=== PATIENT | male | born 1950 | race Caucasian/White ===

== ENCOUNTER 2019-04-06 09:25 | Inpatient (IN) | payer MEDICARE, OTHER, SELFPAY ==
[2019-04-06] VITALS (14 sets, daily range): BP systolic 143–171; BP diastolic 81–97; PULSE 54–80; RESP 12–20; TEMP 36.6–36.8; O2SAT 95–100; BMI 27.1
--- NOTE | 2019-04-06 09:30 | ED.GENADULT ---
HPI - General Adult General Chief complaint: Neuro Symptoms/Deficit Stated complaint: Stroke like symtoms Time Seen by Provider: 04/06/19 09:29 Source: patient and family Mode of arrival: ambulatory Limitations: no limitations History of Present Illness HPI narrative: 69-year-old male here for evaluation of slurring his words and drooping of side of his face. Patient is here with his . They stated that his symptoms started at approximately 1000 hours yesterday morning which is approximately 24 hours prior to arrival here in the emergency department. He stated that they were fairly sudden onset. His stated that she thought that 1 side of his face was drooping and then a 1 point thought that the other side of his face was drooping. She stated that he has continued to slur his words since then. Potentially some improvement however they are unsure. He denies any other symptoms. Has never had a stroke in the past. Not on anticoagulation. Related Data Home Medications Medication Instructions Recorded Confirmed No Known Home Medications 04/06/19 04/06/19 Allergies Allergy/AdvReac Type Severity Reaction Status Date / Time No Known Drug Allergies Allergy Verified 04/06/19 10:44 Review of Systems Constitutional Denies fever(s), Denies frequent falls, Denies headache(s) and Denies weakness Eyes Denies change in vision, Denies diplopia and Denies loss of vision ENT Ears, Nose, Mouth, and Throat: Denies vertigo, Denies dizziness, Denies facial pain, Denies headache(s), Denies mouth pain, Denies disequilibrium, Denies tinnitus and Denies sore throat Comments: Slurring words Cardiovascular Denies chest pain, Denies syncope, Denies edema and Denies dyspnea Respiratory Denies cough and Denies dyspnea Gastrointestinal Gastrointestinal: Denies abdominal pain, Denies nausea and Denies vomiting Genitourinary Denies dysuria and Denies flank pain Musculoskeletal Denies abnormal gait, Denies myalgias, Denies arthralgias, Denies numbness and Denies tingling Integumentary/Breasts Denies lesions and Denies rash Neurologic Denies abnormal movements, Reports abnormal speech, Denies abnormal gait, Denies behavioral changes, Denies confusion, Denies vertigo, Denies dizziness, Denies syncope, Denies frequent falls, Denies headache(s), Denies lack of coordination, Denies loss of vision, Denies memory loss, Denies numbness, Denies tingling, Denies paresthesias, Denies disequilibrium and Denies weakness Psychiatric Denies behavioral changes, Denies confusion and Denies memory loss Hematologic/Lymphatic Denies easy bleeding and Denies easy bruising Allergic/Immunologic Denies urticaria [facility] Medical History (Updated 04/06/19 @ 11:15 by Buck Campbell DO) Healthy adult (Acute) Social History marital status: lives independently: Yes Smoking Status: Never smoker Social History marital status: lives independently: Yes Smoking Status: Never smoker Exam Initial Vital Signs Initial Vital Signs: Vital Signs Pulse Rate 69 04/06/19 09:30 Respiratory Rate 14 04/06/19 09:30 Blood Pressure 171/96 H 04/06/19 09:30 Pulse Oximetry 99 04/06/19 09:30 Const General: cooperative, comfortable, well developed, well groomed and No acute distress Orientation: alert, awake and oriented x3 HENMT Head: normal to inspection and normocephalic Nose: external nose normal Face and sinus: normal facial exam Teeth and gingiva: dentition normal Eyes Pupils: PERRL EOM: EOM intact bilaterally Chest Chest: normal inspection of the chest, No crepitus and No tenderness Resp Effort & Inspection: normal respiratory effort Auscultation: clear to auscultation bilaterally Cardio Rate: regular rate Rhythm: regular rhythm Pulses: radial pulses present GI Inspection: non-distended Palpation: soft and No firm Skin Lesions: no lesions Rashes: no rashes Neuro General: alert, awake and oriented x3 Cognition: normal cognition Speech: other (Slight slurring of words) Gait: normal gait Motor: muscle tone normal throughout Sensory Exam: no sensory deficits noted Coordination: [id number] test normal Extrem General: normal to inspection and capillary refill normal Psych Appearance: grossly normal and well kempt Scores GCS Trout coma scale eye opening: Spontaneous Cuate coma scale verbal response: Orientated Cuate coma scale motor response: Obey commands Trout coma scale total score: 15 NIH Stroke Scale Level of Conciousness: Alert, keenly responsive Ask month/age: Answers both questions correctly. Open/close eyes, close hand: Performs both tasks correctly Best gaze horizontal: Normal Visual prasad: No visual loss Facial palsy: Minor paralysis, flattened nasolabial fold, asymmetry on smiling Left arm drift: No drift for full 10 sec Right arm drift: No drift for full 10 sec Left leg drift: No drift for full 10 sec Right leg drift: No drift for full 10 sec Limb ataxia: Absent Sensory on face/arms/legs: Normal, no sensory loss Best language: Mild to moderate, slurs some words Dysarthria: Normal Extinction or inattention: No abnormality Total NIH Stroke scale score: 2 Course Orders Ordered: ED Orders 04/06/19 09:30 CT head/brain wo con Stat 04/06/19 09:35 Complete Blood Count AUTO DIFF Stat Comprehensive Metabolic Panel Stat Hemoglobin A1C% w Est Avg Glu Stat Lipid Panel Routine Partial Thromboplastin Time Stat Prothrombin Time INR Stat Troponin I Stat 04/06/19 10:08 EKG-12 Lead Stat 04/06/19 10:26 CT angio head and neck Stat 04/06/19 11:36 Education, smoking cessation ONGOING 04/06/19 11:39 Consult to Discharge Planning Routine Consult to Occupational Therapy Evaluate & Treat Consult to Physical Therapy Evaluate & Treat 04/06/19 11:41 Consult to Speech Therapy Evaluate & Treat 04/06/19 11:42 EC echo doppler complete Urgent MR stroke Urgent Acetaminophen (Tylenol) 650 mg PO Q6HR PRN PRN Reason: As Needed for Fever/Mild Pain Bisacodyl (Dulcolax) 10 mg PO DAILY PRN PRN Reason: Constipation Calcium Carbonate (Tums) 1,000 mg PO Q4HR PRN PRN Reason: Dyspepsia Sodium Chloride (Normal Saline 0.9%) 1,000 mls @ 125 mls/hr IV CONT ZULMA Last Admin: 04/06/19 10:44 Dose: 125 mls/hr Sodium Chloride (Normal Saline 0.9%) 1,000 mls @ 100 mls/hr IV CONT ZULMA Ondansetron HCl (Zofran) 4 mg IV Q8HR PRN PRN Reason: Nausea And Vomiting Discontinued Medications Aspirin (Aspirin Chew) 324 mg PO NOW ONE Stop: 04/06/19 11:12 Last Admin: 04/06/19 11:19 Dose: 324 mg Vital Signs - 8 hr 04/06/19 09:30 04/06/19 09:41 04/06/19 09:45 Temperature 98.2 F Pulse Rate 69 67 63 Respiratory Rate 14 14 18 Blood Pressure 171/96 H Blood Pressure [Right Arm] 171/96 H 151/81 H Pulse Oximetry 99 99 98 04/06/19 10:00 04/06/19 10:15 04/06/19 10:30 Temperature Pulse Rate 62 62 64 Respiratory Rate 13 14 16 Blood Pressure Blood Pressure [Right Arm] 149/84 H 157/86 H 157/86 H Pulse Oximetry 99 98 98 04/06/19 11:00 04/06/19 12:02 Temperature Pulse Rate 58 L 80 Respiratory Rate 12 16 Blood Pressure Blood Pressure [Right Arm] 143/88 H 157/89 H Pulse Oximetry 98 98 Medical Decision Making Lab Data Lab results reviewed: Yes I reviewed the patient's lab results. Result diagrams: 04/06/19 09:35 04/06/19 09:35 Lab Results 04/06/19 04/06/19 04/06/19 Range/Units 09:35 09:35 09:35 WBC 6.1 (4.5-11.0) X10^3/uL RBC 4.80 (4.5-5.9) X10^6/uL Hgb 15.3 (13.5-17.5) g/dL Hct 44.8 (41-53) % MCV 93.3 (80-100) fL MCH 31.8 (26-34) PG MCHC 34.0 (30-36) % RDW 13.6 (11.6-14.8) % Plt Count 328 (150-400) X10^3/uL Neut % (Auto) 51.2 (50-75) % Lymph % (Auto) 27.5 (25-40) % Quay % (Auto) 11.8 (3-14) % Eos % (Auto) 8.1 H (2-4) % Baso % (Auto) 1.4 (0-2) % Neut # (Auto) 3100 (4053-3205) /uL Lymph # (Auto) 1700 (9614-7282) /uL Quay # (Auto) 700 (0-900) /uL Eos # (Auto) 500 H (0-450) /uL Baso # (Auto) 100 (0-100) /uL PT 11.1 (10.1-12.7) SECONDS INR 1.0 (0.9-1.3) APTT 31 (26.4-36.2) SECONDS Sodium 138 (137-145) mmol/L Potassium 4.8 (3.4-5.1) mmol/L Chloride 104 (98-107) mmol/L Carbon Dioxide 26 (22-32) mmol/L BUN 19 (9-20) mg/dL Creatinine 0.90 (0.66-1.25) mg/dL Estimated GFR > 60.0 (>60) mL/min BUN/Creatinine Ratio 21.1 (6-22) Glucose 103 (80-110) mg/dL Calcium 9.1 (8.4-10.2) mg/dL Total Bilirubin 0.8 (0.2-1.3) mg/dL AST 25 (17-59) IU/L ALT 25 (21-72) IU/L Alkaline Phosphatase 41 (38-126) U/L Troponin I < 0.012 (0.01-0.034) ng/mL Total Protein 7.1 (6.3-8.2) g/dL Albumin 4.2 (3.5-5.0) g/dL Globulin 2.9 (1.7-4.1) g/dL Albumin/Globulin Ratio 1.4 (1.0-2.8) Imaging Data CT scan - head: Radiologist's impression: [place] [address] CT Scan Report Signed Patient: Jacinda Johnston#: [id number] : 1Acct:[id number] Age/Sex: 69 / MDate of Service: 04/06/19 Loc: ED Accession Number: [id number] Procedure: CT head/brain wo con Ordering Provider: Buck Campbell D.O. PROCEDURE: CT HEAD/BRAIN WO CON INDICATIONS: confusion TECHNIQUE: Noncontrast 4.5 mm thick angled axial sections acquired from the foramen magnum to the vertex, with coronal and sagittal reformats. For radiation dose reduction, the following was used: automated exposure control, adjustment of mA and/or kV according to patient size. COMPARISON: None. FINDINGS: Image quality: Diagnostic CSF spaces: Basal cisterns are patent. No extra-axial fluid collections. Ventricles are mildly prominent. Brain: No midline shift. No intracranial masses or hemorrhage. Roger-white matter interface is normal. Moderate areas of confluent low attenuation are seen within the periventricular and deep white matter of the supratentorial brain. Skull and face: Calvarium and visualized facial bones are intact, without suspicious lesions. Sinuses: Visualized sinuses and mastoids are clear. IMPRESSION: 1. No acute intracranial hemorrhage. 2. Moderate chronic small vessel ischemic changes and mild parenchymal volume loss. Note: Findings were discussed with Dr. Campbell at 1011 hours (PST) on 04/06/19. Dictated by: Leonides Montero M.D. on 04/06/2019 at 9:09 Approved by: Leonides Montero M.D. on 04/06/2019 at 9:11 CTA: Radiologist's impression: [place] [address] CT Scan Report Signed Patient: Jacinda Johnston#: [id number] : 1950cct:[id number] Age/Sex: 69 / MDate of Service: 04/06/19 Loc: ED Accession Number: [id number] Procedure: CT angio head and neck Ordering Provider: Buck Campbell D.O. PROCEDURE: CT ANGIO HEAD AND NECK INDICATIONS: confusion TECHNIQUE: Pre-contrast 4.5 mm thick sections acquired from the foramen magnum to the vertex. After the administration of intravenous contrast, 1 mm thick sections acquired from the aortic arch through the [place]. Post-contrast 4.5 mm thick sections then re-acquired from the foramen magnum to the vertex. 3-dimensional chqwwja-sepkyhfxj-thuzarkxkj (MIP) and/or volume rendering reformats were acquired of the central intracranial vasculature and neck separately. COMPARISON: [facility], CT, CT HEAD/BRAIN WO CON, 04/06/2019, 9:41. FINDINGS: Image quality: Excellent. BRAIN: CSF spaces: Ventricles are normal in size and shape. Basal cisterns are patent. No extra-axial fluid collections. Brain: No midline shift. No intracranial bleeds or masses. Roger-white matter interface appears intact. Moderate diffuse small vessel ischemic change. No acute stroke, hemorrhage, or mass. Skull and face: Calvarium and facial bones appear intact, without suspicious lesions. Orbits appear normal. Sinuses: Sinuses and mastoids are clear. HEAD CT ANGIOGRAPHY: No stenoses, aneurysms, or occlusions. NECK CT ANGIOGRAPHY: Carotid system: The great vessels demonstrate a conventional anatomy as they arise from the aortic arch. The origins of the common carotid arteries appear patent. The common carotid arteries demonstrate normal caliber and courses. The bifurcation regions are both widely patent. There is mild plaque involving the left carotid bulb and proximal internal carotid artery without stenosis. The internal carotid arteries demonstrate normal calibers and courses. Posterior circulation: The origins of the vertebral arteries both appear widely patent. The right vertebral artery is somewhat diminutive. The left vertebral artery is dominant. The more superior extracranial portions of both vertebral arteries also demonstrate normal courses and calibers. They join to form a normal appearing basilar artery. Soft tissues: Visualized neck soft tissues demonstrate no suspicious abnormalities. Bones: No suspicious bony lesions. Visualized cervical spine appears normally aligned. IMPRESSION: 1. No evidence of acute stroke, hemorrhage, or mass. 2. Moderate small vessel ischemic change. 3. Unremarkable CTA head. No stenoses, occlusions, aneurysms, or filling defects. 4. Mild carotid atherosclerotic disease. No flow limiting stenosis. Comment: Findings were discussed with arch support technician for Dr. Campbell at the time of study dictation on 04/06/19 and 1027 hrs. Any quantitative measurements of stenosis were performed using NASCET criteria. Dictated by: Oliverio Velazquez M.D. on 04/06/2019 at 10:19 Approved by: Oliverio Velazquez M.D. on 04/06/2019 at 10:31 ECG Data Attestation: I personally reviewed and interpreted this ECG as follows: Prior ECG tracings: not available for review Interpretation: Sinus rhythm Ventricular rate is 60 Normal axis Normal QRS Normal QTC No ST T wave changes MDM Narrative Medical decision making narrative: Patient is 24 hours after the onset of his symptoms. His head CT is negative. His CTA shows no acute blockages. EKG is unremarkable. He has NIH score 2. He was given a aspirin here in the ER. Discussed the case with stroke neurologist at [facility] who stated there was no emergent interventions needed on their part. Recommended routine stroke workup. Discussed the case with hospitalist parts professional who will admit the patient for further evaluation and treatment. Discussed the admission with the patient and his who is at bedside. They both expressed understanding and agreement with plan. Discharge Plan Departure Patient Disposition: Admitted As Inpatient Clinical Impression: Cerebrovascular accident Qualifiers: CVA mechanism: unspecified Qualified Code(s): I63.9 - Cerebral infarction, unspecified Admit Date/Time: 04/06/19 11:38 Admit Provider: Sandy Bajwa
[2019-04-06 09:47] LABS: Add Manual Diff / Slide Review NO; Basophils Absolute Auto 100 /uL (0-100); Basophils Percent Auto 1.4 % (0-2); Eosinophils Absolute Auto 500 /uL (0-450); Eosinophils Percent Auto 8.1 % (2-4); Hematocrit 44.8 % (41-53); Hemoglobin 15.3 g/dL (13.5-17.5); Lymphocytes Absolute Auto 1700 /uL (1100-4500); Lymphocytes Percent Auto 27.5 % (25-40); Mean Corpuscular Hemoglobin 31.8 PG (26-34); Mean Corpuscular Volume 93.3 fL (80-100); Monocytes Absolute Auto 700 /uL (0-900); Monocytes Percent Auto 11.8 % (3-14); Neutrophils Absolute Auto 3100 /uL (1500-7000); Neutrophils Percent Auto 51.2 % (50-75); Platelet Count 328 X10^3/uL (150-400); Red Cell Distribution Width 13.6 % (11.6-14.8); White Blood Cell Count 6.1 X10^3/uL (4.5-11.0)
[2019-04-06 09:55] LABS: Prothrombin Time 11.1 SECONDS (10.1-12.7)
[2019-04-06 09:57] LABS: PTT Partial Thromboplastin Tim 31 SECONDS (26.4-36.2)
[2019-04-06 10:00] LABS: Alanine Aminotransferase 25 IU/L (21-72); Albumin 4.2 g/dL (3.5-5.0); Albumin Globulin Ratio 1.4 (1.0-2.8); Alkaline Phosphatase 41 U/L (38-126); Aspartate Aminotransferase 25 IU/L (17-59); BUN Creatinine Ratio 21.1 (6-22); Bilirubin Total 0.8 mg/dL (0.2-1.3); Blood Urea Nitrogen 19 mg/dL (9-20); Calcium 9.1 mg/dL (8.4-10.2); Carbon Dioxide 26 mmol/L (22-32); Chloride 104 mmol/L (98-107); Estimated Glomerular Filt Rate > 60.0 mL/min (>60); Globulin 2.9 g/dL (1.7-4.1); Glucose 103 mg/dL (80-110); Sodium 138 mmol/L (137-145); Total Protein 7.1 g/dL (6.3-8.2)
[2019-04-06 10:06] LABS: HEMOLYSIS 60 (0-50)
[2019-04-06 10:07] LABS: Potassium 4.8 mmol/L (3.4-5.1)
[2019-04-06 10:11] LABS: Troponin I < 0.012 ng/mL (0.01-0.034)
--- NOTE | 2019-04-06 10:26 | DI.CT.S_ITS ---
PROCEDURE: CT ANGIO HEAD AND NECK INDICATIONS: confusion TECHNIQUE: Pre-contrast 4.5 mm thick sections acquired from the foramen magnum to the vertex. After the administration of intravenous contrast, 1 mm thick sections acquired from the aortic arch through the [place]. Post-contrast 4.5 mm thick sections then re-acquired from the foramen magnum to the vertex. 3-dimensional egxmckr-tjcsobkil-iugeocmydp (MIP) and/or volume rendering reformats were acquired of the central intracranial vasculature and neck separately. COMPARISON: [facility], CT, CT HEAD/BRAIN WO CON, 04/06/2019, 9:41. FINDINGS: Image quality: Excellent. BRAIN: CSF spaces: Ventricles are normal in size and shape. Basal cisterns are patent. No extra-axial fluid collections. Brain: No midline shift. No intracranial bleeds or masses. Roger-white matter interface appears intact. Moderate diffuse small vessel ischemic change. No acute stroke, hemorrhage, or mass. Skull and face: Calvarium and facial bones appear intact, without suspicious lesions. Orbits appear normal. Sinuses: Sinuses and mastoids are clear. HEAD CT ANGIOGRAPHY: No stenoses, aneurysms, or occlusions. NECK CT ANGIOGRAPHY: Carotid system: The great vessels demonstrate a conventional anatomy as they arise from the aortic arch. The origins of the common carotid arteries appear patent. The common carotid arteries demonstrate normal caliber and courses. The bifurcation regions are both widely patent. There is mild plaque involving the left carotid bulb and proximal internal carotid artery without stenosis. The internal carotid arteries demonstrate normal calibers and courses. Posterior circulation: The origins of the vertebral arteries both appear widely patent. The right vertebral artery is somewhat diminutive. The left vertebral artery is dominant. The more superior extracranial portions of both vertebral arteries also demonstrate normal courses and calibers. They join to form a normal appearing basilar artery. Soft tissues: Visualized neck soft tissues demonstrate no suspicious abnormalities. Bones: No suspicious bony lesions. Visualized cervical spine appears normally aligned. IMPRESSION: 1. No evidence of acute stroke, hemorrhage, or mass. 2. Moderate small vessel ischemic change. 3. Unremarkable CTA head. No stenoses, occlusions, aneurysms, or filling defects. 4. Mild carotid atherosclerotic disease. No flow limiting stenosis. Comment: Findings were discussed with customer support professional for Dr. Campbell at the time of study dictation on 04/06/19 and 1027 hrs. Any quantitative measurements of stenosis were performed using NASCET criteria. Dictated by: Oliverio Velazquez M.D. on 04/06/2019 at 10:19 Approved by: Oliverio Velazquez M.D. on 04/06/2019 at 10:31
--- NOTE | 2019-04-06 10:38 | PC.NURSE ---
Strength equal in all extremities: states right arm is weak but hand grasps equal and w/o drift. c/o altered sensation in right arm but able to distinguish soft / sharp touch.
[2019-04-06] MEDS: SODIUM CHLORIDE 0.9% 1,000 ML 125 ML IV (10:44)
[2019-04-06] MEDS: ASPIRIN 81 MG TAB 324 MG PO (11:19)
--- NOTE | 2019-04-06 11:42 | DI.MRI.S_ITS ---
PROCEDURE: MR STROKE Pre- and post-contrast brain MRI, non-contrast brain MR angiogram, pre- and postcontrast neck MR angiogram INDICATIONS: right sided facial droop and slurred speech TECHNIQUE: Brain: Noncontrast axial T1 spin echo, axial T2 fast spin echo, sagittal and axial FLAIR, coronal T2 fast spin echo, axial gradient echo, axial diffusion and ADC through the brain. After the administration of contrast, axial 3D VIBE of the cranial vasculature and brain. Brain MRA: Non-contrast 3-D time of flight MR angiogram, with multiple vfrcxpd-jysnqlfvg-wkybcrmzty (MIP) reformats performed. Neck MRA: Axial and sagittal TruFISP through the neck. Coronal dynamic MR angiogram during administration of contrast in the arterial and venous phases, with 3-dimenstional lqkvgts-oywnamrsn-txltzrxtdp (MIP) reformats constructed from subtraction images. COMPARISON: [facility], CT, CT ANGIO HEAD AND NECK, 04/06/2019, 9:41. [facility], CT, CT HEAD/BRAIN WO CON, 04/06/2019, 9:41. FINDINGS: Image quality: Excellent. BRAIN: CSF spaces: Ventricles are normal in size and shape. Basal cisterns are patent. No extra-axial fluid collections. Brain: There is a focus of diffusion weighted hyperintensity seen within the deep white matter of the left frontal lobe, as on series 26 image 67. There is associated direct signal seen on the accompanying ADC map. Developing increased T2-weighted signal can be seen within this region. No intracranial bleeds or mass effects. Roger-white matter interface is normal. Scattered foci of T2 white matter hyperintensity are seen within the periventricular and deep white matter. Brain parenchymal volume loss can be seen. Brainstem appears normal. Normal intravascular flow voids are present. No abnormal intracranial enhancement. Skull and face: Calvarial marrow signal is normal. Orbits appear normal. Note is made of bilateral lens replacements. Sinuses: Mucosal thickening is seen involving the medial superior left maxillary sinus. Sinuses and mastoids are otherwise clear. BRAIN MR ANGIOGRAM: Anterior circulation: Intracranial internal carotid arteries are normal in size and enhancement. There is a diminutive right A1 segment, with a corresponding robust left A1 segment. This is considered to be a normal developmental variant of the [place], of typically no clinical consequence. The flow within the paired anterior cerebral arteries is otherwise normal and symmetric. The flow within the middle cerebral arteries is normal and symmetric. The anterior communicating artery is seen. No stenoses, occlusions, or aneurysms. Posterior circulation: The visualized portions of the vertebral arteries demonstrate normal caliber, and join to form a normal appearing basilar artery. The flow within the posterior cerebral arteries is normal and symmetric. No stenoses, occlusions, or aneurysms. NECK MR ANGIOGRAM: Carotids: Great vessels demonstrate a conventional anatomy as they arise from the aortic arch. The origins of the common carotid arteries appear patent. The calibers and courses of both common carotid arteries are normal. The bifurcation regions appear normal bilaterally. The internal carotid arteries demonstrate normal course and caliber. Posterior circulation: The origins of the vertebral arteries appear patent. More superior portions of both vertebral arteries demonstrate normal course and caliber, and join to form a normal appearing basilar artery. Miscellaneous: Subclavian arteries appear patent. Pre-contrast images through the neck show no soft tissue abnormalities. IMPRESSION: BRAIN MRI: There is a focal subacute infarction seen involving the deep white matter of the left frontal lobe. Note is made of age-appropriate brain parenchymal volume loss and chronic small vessel ischemic changes. BRAIN MR ANGIOGRAM: No significant intracranial arterial abnormality is seen. NECK MR ANGIOGRAM: Within the arteries of the neck, no hemodynamically significant stenosis can be seen. Dictated by: Jorje Irvin M.D. on 04/06/2019 at 12:54 Approved by: Jorje Irvin M.D. on 04/06/2019 at 12:59
--- NOTE | 2019-04-06 11:42 | DI.ECHO.S_ITS ---
[facility]---------+ [facility] +---------+ : : [address] : : : : [id number] : : : : Phone: [phone]+ Echocardiogram Report + + :Name: KOBE ATKINS Study Date: 04/07/2019 Height: 70 in : :[facility] Exam Location: [facility] Weight: 196 lb : : Gender: Male BSA: 2.1 m2 : :: 1950 Age: 69 yrs BP: 138/90 mmHg: :Reason For Study: CVA : : Performed By: Jimmy Baldwin : :Referring: JULIETH PARK : + + Interpretation Summary The left ventricle is normal in size, wall thickness, and systolic function without any focal wall motion abnormalities with the ejection fraction visually estimated to be 70-75%. Diastolic parameters suggest probable normal left ventricular diastolic function and normal filling pressures. The right ventricle is normal in size and function. The right ventricular systolic pressure is estimated to be at least 32 mmHg based on an estimated right atrial pressure of 3 mm Hg. The left atrium is moderately dilated and the right atrium is severely dilated. The interatrial septum is intact with no evidence for an atrial septal defect by Doppler interrogation or injection of agitated saline contrast. There is no significant valvular heart disease. The ascending aorta is at the upper limits of normal in size. Procedure: A two-dimensional transthoracic echocardiogram with color flow and Doppler was performed. The study quality was technically good. There is no prior echocardiogram noted for this patient. A saline contrast injection was performed to assess for cardiac shunting. The patient was in normal sinus rhythm during the exam. Left Ventricle: The left ventricle is normal in size, wall thickness, and systolic function without any focal wall motion abnormalities. The ejection fraction is estimated to be 70-75%. Diastolic parameters suggest probable normal left ventricular diastolic function and normal filling pressures. Right Ventricle: The right ventricle is normal in size and function. Atria: The left atrium is moderately dilated. The right atrium is severely dilated. The interatrial septum is intact with no evidence for an atrial septal defect. There is no Doppler evidence for an interatrial shunt. Injection of contrast documented no interatrial shunt. Mitral Valve: There is mild mitral annular calcification. There is trace mitral regurgitation. Aortic Valve: The aortic valve is trileaflet. The aortic valve is slightly calcified. The aortic valve opens well. No aortic regurgitation is present. Tricuspid Valve: The tricuspid valve is normal in structure and function. There is trace tricuspid regurgitation. The right ventricular systolic pressure is estimated to be at least 32 mmHg based on an estimated right atrial pressure of 3 mm Hg. Pulmonic Valve: The pulmonic valve is normal in structure and function. There is trace pulmonic regurgitation. There is no significant valvular heart disease. Great Vessels: The aortic root is normal size. The ascending aorta is at the upper limits of normal in size. The pulmonary artery is normal size. The IVC is of normal diameter and collapses greater than 50% with a sniff. This suggests a low right atrial pressure of 3 mm Hg. Pericardium/ Pleura There is no pericardial effusion. There is no pleural effusion. MMode/2D Measurements & Calculations LVIDd: 5.4 cm LVOT diam: 2.3 cm LVIDs: 2.5 cm Ao root diam: 3.4 cm FS: 53.8 % Aortic Jxn: 2.9 cm EPSS: 0.30 cm asc Aorta Diam: 3.3 cm IVSd: 0.83 cm LVPWd: 1.0 cm LV tiwari. diameter/BSA (cm/m^2): 2.6 LV sys. diameter/BSA (cm/m^2): 1.2 LA dimension: 3.9 cm RA long axis: 5.7 cm LA A2 area: 25.7 cm2 RA area: 27.2 cm2 LA A4 area: 20.6 cm2 RA vol: 111.0 ml LA length (vol): 5.2 cm RA : 53.6 ml/m2 LA vol: 85.9 ml IVC diam: 1.5 cm LA vol index: 41.5 ml/m2 RVD1 (basal): 3.5 cm RVD2 (mid): 3.3 cm Doppler Measurements & Calculations Ao V2 max: 172.3 cm/sec LVOT Max Aamir: 124.3 cm/sec Ao V2 mean: 126.4 cm/sec LV V1 max P.2 mmHg Ao max P.9 mmHg LV V1 VTI: 27.3 cm Ao mean P.9 mmHg BRUNILDA(I,D): 2.9 cm2 Ao V2 VTI: 37.9 cm BRUNILDA(V,D): 2.9 cm2 sev ratio: 0.72 BRUNILDA indexed to BSA (cm^2/m^2): 1.4 MV E max aamir: 77.2 cm/sec TR max aamir: 269.8 cm/sec MV A max aamir: 75.4 cm/sec TR max P.1 mmHg MV E/A: 1.0 PA V2 max: 141.0 cm/sec Med Peak E' Aamir: 8.3 cm/sec PA V2 mean: 103.9 cm/sec E/E' med: 9.4 PA mean P.7 mmHg Lat Peak E' Aamir: 8.9 cm/sec PA pr(Accel): 34.1 mmHg E/E' lat: 8.7 PA Accel Time: 0.10 sec E/e' average: 9.0 MV dec time: 0.21 sec SV(LVOT): 111.3 ml Reading Physician:JASSI
[2019-04-06 12:27] LABS: Cholesterol 222 mg/dL (140-199); HDL Cholesterol 55 mg/dL (40-60); LDL Cholesterol Calculated 151 mg/dL (<100); Triglycerides 81 mg/dL (35-150)
--- NOTE | 2019-04-06 13:10 | PC.ADMIT ---
Addendum entered by Joyce Valentin R.N. 04/06/19 15:01: Pt evaluated by speech therapy and cleared, eating late lunch at this time. Facial droop now appears to be left-sided. and pt report this alternating facial droop has been happening since yesterday. Original Note: [address] [place] [id number] Admission Note: Admit Patient arrived via wheelchair to room 215 at 1300. with patient. Oriented to room and to bed/tv/call light controls, instructed on fall risk level and to call for assist when needed. Denies pain. Speech mildly slurred, right facial droop noted. Taken down to MRI via wheelchair shortly after arrival to room. Declines to lock up any valuables. Call light within reach. The patient,Norberto Johnston,69 y/o, was given written information regarding hospital policies, unit procedures and contact persons. Patient's smoking status: Never smoker. Vital Signs - 8 hr 04/06/19 09:30 04/06/19 09:41 04/06/19 09:45 Temperature 98.2 F Pulse Rate 69 67 63 Respiratory Rate 14 14 18 Blood Pressure 171/96 H Blood Pressure [Right Arm] 171/96 H 151/81 H Pulse Oximetry 99 99 98 04/06/19 10:00 04/06/19 10:15 04/06/19 10:30 Temperature Pulse Rate 62 62 64 Respiratory Rate 13 14 16 Blood Pressure Blood Pressure [Right Arm] 149/84 H 157/86 H 157/86 H Pulse Oximetry 99 98 98 04/06/19 11:00 04/06/19 12:02 04/06/19 12:30 Temperature Pulse Rate 58 L 80 54 L Respiratory Rate 12 16 13 Blood Pressure Blood Pressure [Right Arm] 143/88 H 157/89 H 159/85 H Pulse Oximetry 98 98 100 04/06/19 13:00 Temperature 97.9 F Pulse Rate 61 Respiratory Rate 16 Blood Pressure 170/97 H Blood Pressure [Right Arm] Pulse Oximetry 100
[2019-04-06] MEDS: SODIUM CHLORIDE 0.9% 1,000 ML 100 ML IV (13:56)
--- NOTE | 2019-04-06 14:20 | ST.IPCSEOM ---
Care Team Visit Care Team Role Provider Type Buck Campbell DO Emergency Provider Physician Specialty: Emergency Medicine Address: [address] [place] [address], [id number] Email: Sandy Bajwa DO Admit Provider Physician Attending Provider Specialty: Internal Medicine Address: [address] [place] [address], [address] Email: Past Medical History (Last Updated 04/06/19 @ 09:39 by Buck Campbell DO) Healthy adult (Acute Medical) Speech-Language Pathology Swallow Evaluation PECAN PICKER Clinical Swallow Evaluation Start: 04/06/19 15:58 Freq: Status: Active Protocol: Document 04/06/19 15:58 TLC (Rec: 04/06/19 16:11 TLC [id number]) Clinical Swallow Evaluation Session Time Visit Start Time 13:50 Visit Stop Time 14:20 Total Visit Minutes [address] Bajwa Reason for Referral Stroke Protocol Setting Assessment Location Acute Care Visit Type Note Type Initial Evaluation Patient Information History Patient came in this morning with stroke like symptoms. MRI showed a focal subacute infarction seen involving the deep white matter of the left frontal lobe. Subjective Observations Patient sitting in bed with present in room. Evaluation Liquids Trialed Ice Chips Thin Solids Trialed Puree Mechanical Soft Regular Administration Type Self-Feeding Oral Impairment WFL Oral Phase Comments Oral Mech: mild right facial droop and mild impairments in labial strength,range of motion and coordination, lingual strength range of motion and coordination WFL. Mild anterior spillage of juice from right corner of mouth when eating mixed fruit. No other oral phase impairments observed. Pharyngeal Impairment WFL Pharyngeal Phase Comments No signs of aspiration observed during any trials including 3 oz water swallow protocol. Volitional throat clear and cough strong and production. Soft palate elevates on phonation. Findings Impressions Mild oral phase dysphagia due to decreased labial strength, coordination and range of motion which also result in mild dysarthria, though speech is 100% intelligible. No signs of pharyngeal dysphagia. Patient scored 25/30 on MoCA missing 2 points for short term recall of words, 1 for serial subtraction, 1 for divergent naming and 1 for date (off by 1). His reports patient is at baseline level cognitively. Diet Recommendations Liquids Order Thin Diet Order Regular Medication Recommendations As Tolerated Treatment Plan Placement Recommendations after Home Discharge Appropriate for Therapy No Therapy Recommendations Provided patient with verbal and written education on dysarthria speaking strategies as well as oral motor exercises for labial strength and coordination. inquired about need for speech therapy following discharge. Patient will not likely need services as impairments are very mild in severity; however , if these persist and do not recover spontaneously, he may benefit from a few outpatient ST session.
--- NOTE | 2019-04-06 17:52 | P.HP_ITS ---
History of Present Illness Date Patient Seen: 04/06/19 Chief complaint: Stoke like symtoms Narrative: Norberto Johnston is a 69-year-old male with a past medical history significant for tobacco dependence, alcohol dependence untreated hypertension and hyperlipidemia (previous statin intolerance) who presented for right-sided facial droop and slurred speech. The patient reports that yesterday morning around 10:00 a.m. his noticed right-sided facial droop and slurred speech which continued to persist throughout the afternoon and evening. This morning he noticed right-sided upper extremity weakness while brushing his hair. He has never had this before. He has no other symptoms and denies lightheadedness or dizziness, visual changes including blurry or double vision, shortness of breath, chest pain, palpitations, abdominal pain, nausea, vomiting, fever, chills, dysuria, diarrhea or constipation. His urged him to go to the ED due to persistence of symptoms. In the ED, CT and CTA brain did not demonstrate any acute intracranial process with moderate chronic small vessel ischemic changes and mild parenchymal volume loss. NIH score was a 2 for right-sided facial droop and slurred speech. He is being admitted for further evaluation and management. Patient History Medical History (Updated 04/06/19 @ 17:57 by Sandy Bajwa DO) Alcohol dependence (Acute) Hyperlipidemia (Acute) Hypertension (Acute) Inguinal hernia (Acute) Tobacco abuse disorder (Acute) Healthy adult (Acute) Surgical History (Updated 04/06/19 @ 17:57 by Sandy Bajwa DO) H/O cataract removal with insertion of prosthetic lens (Acute) Family History (Updated 04/06/19 @ 17:59 by Sandy Bajwa DO) Father Heart attack Mother Dementia Brother Healthy adult Sister Healthy adult Brother Healthy adult Brother Healthy adult Social History marital status: household members: spouse lives independently: Yes Smoking Status: Current every day smoker alcohol intake: current Family & Social History Family History (Updated 04/06/19 @ 17:59 by Sandy Bajwa DO) Father Heart attack Mother Dementia Brother Healthy adult Sister Healthy adult Brother Healthy adult Brother Healthy adult Social History: household members spouse Prior Living Arrangements House lives independently Yes Safety & Behavioral: Feels Safe in Current Yes Environment Been Physically Hurt or No Threatened By a Person Suicidal Ideation Description None Suicide Plan Description No Plan Tobacco & Substance use: Tobacco type cigarettes Smoking Status Current every day smoker Smoking packs per day 0.5 alcohol intake current alcohol intake frequency 4-6 beers a day Substance Use Type does not use The patient is x 49 years. He has 2 daughters who are healthy. 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 Meds Home Medications Medication Instructions Recorded Confirmed Type No Known Home Medications 04/06/19 04/06/19 History Allergies Allergy/AdvReac Type Severity Reaction Status Date / Time No Known Drug Allergies Allergy Verified 04/06/19 10:44 Review of Systems Review of Systems A 10 system comprehensive review of systems was conducted with the patient and found to be negative except as above in the History of Present Illness. Exam Vital Signs (past 8 hours): - 04/06/19 10:00 04/06/19 10:15 04/06/19 10:30 Temperature Pulse Rate 62 62 64 Respiratory Rate 13 14 16 Blood Pressure Blood Pressure [Right Arm] 149/84 H 157/86 H 157/86 H Pulse Oximetry 99 98 98 04/06/19 11:00 04/06/19 12:02 04/06/19 12:30 Temperature Pulse Rate 58 L 80 54 L Respiratory Rate 12 16 13 Blood Pressure Blood Pressure [Right Arm] 143/88 H 157/89 H 159/85 H Pulse Oximetry 98 98 100 04/06/19 13:00 04/06/19 16:05 Temperature 97.9 F 98.0 F Pulse Rate 61 62 Respiratory Rate 16 18 Blood Pressure 170/97 H 148/81 H Blood Pressure [Right Arm] Pulse Oximetry 100 98 Oxygen Delivery Method Room Air Oxygen Flow Rate 0 Narrative Exam Narrative: General: Older gentleman sitting in bed and in no acute distress, well- developed, well-nourished, appropriately interactive. HEENT: Normocephalic, atraumatic. External ears without defect. Pupils equal, round, and reactive to light. Anicteric sclerae, moist conjunctivae, and right- sided lid lag and facial droop. Oropharynx free of erythema and cobble stoning with moist mucosa. Neck: Supple with full range of motion. No jugular venous distension. No bruits. No lymphadenopathy or thyromegaly. Cardiovascular: Regular rate and rhythm without murmurs, rubs, or gallops appreciated. Pulmonary: Clear to auscultation bilaterally without crackles, wheezes, or rhonchi. Normal respiratory effort with no use of accessory muscles. Abdomen: Soft, bowel sounds present, nontender, nondistended. No hepatosplenomegaly or masses appreciated. Extremities: No clubbing, cyanosis, or edema. Skin: Normal temperature, turgor, and texture; no rash, ulcers, or subcutaneous nodules appreciated. Neurological: Cranial nerves grossly intact. Right-sided facial droop. Slurred speech. Normal muscle strength, tone, and bulk. Reflexes, coordination, and sensory function within normal limits. No known gait impairment. Psychiatric: Normal mood and affect. Alert and oriented to person, place, and time. Objective Labs Result Diagrams: 04/06/19 09:35 04/06/19 09:35 Labs: Laboratory Results - last 24 hr 04/06/19 04/06/19 04/06/19 09:35 09:35 09:35 WBC 6.1 RBC 4.80 Hgb 15.3 Hct 44.8 MCV 93.3 MCH 31.8 MCHC 34.0 RDW 13.6 Plt Count 328 Neut % (Auto) 51.2 Lymph % (Auto) 27.5 [place] % (Auto) 11.8 Eos % (Auto) 8.1 H Baso % (Auto) 1.4 Neut # (Auto) 3100 Lymph # (Auto) 1700 [place] # (Auto) 700 Eos # (Auto) 500 H Baso # (Auto) 100 PT 11.1 INR 1.0 APTT 31 Sodium 138 Potassium 4.8 Chloride 104 Carbon Dioxide 26 BUN 19 Creatinine 0.90 Estimated GFR > 60.0 BUN/Creatinine Ratio 21.1 Glucose 103 Hemoglobin A1c Calcium 9.1 Total Bilirubin 0.8 AST 25 ALT 25 Alkaline Phosphatase 41 Troponin I < 0.012 Total Protein 7.1 Albumin 4.2 Globulin 2.9 Albumin/Globulin Ratio 1.4 Triglycerides Cholesterol LDL Cholesterol, Calc HDL Cholesterol 04/06/19 04/06/19 09:35 09:35 WBC RBC Hgb Hct MCV MCH MCHC RDW Plt Count Neut % (Auto) Lymph % (Auto) [place] % (Auto) Eos % (Auto) Baso % (Auto) Neut # (Auto) Lymph # (Auto) [place] # (Auto) Eos # (Auto) Baso # (Auto) PT INR APTT Sodium Potassium Chloride Carbon Dioxide BUN Creatinine Estimated GFR BUN/Creatinine Ratio Glucose Hemoglobin A1c 5.0 Calcium Total Bilirubin AST ALT Alkaline Phosphatase Troponin I Total Protein Albumin Globulin Albumin/Globulin Ratio Triglycerides 81 Cholesterol 222 H LDL Cholesterol, Calc 151 H HDL Cholesterol 55 Assessment & Plan Assessment & Plan narrative: Norberto Johnston is a 69-year-old male with a past medical history significant for tobacco dependence, alcohol dependence untreated hypertension and hyperlipidemia (previous statin intolerance) who presented for right-sided facial droop and slurred speech. 1. Acute left frontal lobe CVA, present on admission. Active. -Patient presented with right-sided facial droop and slurred speech since 10:00 on 04/05/2019. -Initial NIH score 2. Continue to monitor NIH and neurological status frequently. -CT brain without contrast and CTA head and neck did not demonstrate any significant intracranial or neck abnormality including CVA, stenosis, or aneurysms. -MR stroke demonstrated a focal subacute infarction seen involving the deep white matter of the left frontal lobe. -Received aspirin 324 mg x1 in ED. Continue aspirin 81 mg daily. -Risk stratify with hemoglobin A1c and fasting lipid panel, pending. Patient has previous statin intolerance and would recommend reconsidering low-dose trial. -Allow for permissive hypertension for 24-48 hours. Ordered labetalol for SBP > 220 mmHg or DBP > 110 mmHg. -Ordered PT/OT/ST, pending. 2. Hypertension, chronic, present on admission. Stable. -Will allow for permissive hypertension for 24-48 hours. If blood pressure continues to be elevated tomorrow will implement antihypertensive regimen. 3. Hyperlipidemia, chronic, present on admission. Stable. -Ordered fasting lipid panel, pending. -Previous history of statin intolerance. May want to consider low dose statin trial. 4. Tobacco dependence, chronic, present on admission. Stable. -Patient current smoker 0.75 packs per day. -Educated patient on smoking cessation and recommended indefinite abstinence. -Ordered nicotine patch 21 mg daily as needed for nicotine withdrawal. 5. Alcohol dependence, chronic, present on admission. Stable. -Patient currently drinks 4-6 beers every night. -Educated patient on alcohol use and recommended cut back or abstain indefinitely. Patient is admitted under inpatient status with expected length of stay greater than 2 midnights due to severity of presenting symptoms, risk of adverse event, and complexity of treatment plan. Quality VTE Deep Vein Thrombosis/Pulmonary Embolism Present on Admission: No
[2019-04-07] MEDS: SODIUM CHLORIDE 0.9% 1,000 ML 100 ML IV (00:16)
--- NOTE | 2019-04-07 00:36 | PC.NURSE ---
Addendum entered by Sienna Uribe R.N. 04/07/19 06:00: 0430 NIH remains 1 with facial droop, but now appears to be present on left side of face. Denies pain. Addendum entered by Sienna Uribe R.N. 04/07/19 01:33: Correction to earlier charting: facial droop is on right. Addendum entered by Sienna Uribe R.N. 04/07/19 01:14: Telemetry reading just recorded by GAS CUTTER as SB with rate of 58. Original Note: Patient is alert and oriented with NIH of 1 due to slight left facial droop. Breath sounds CTA with RA sat of 95%. HRR and is on telemetry with last reported telemetry reading on evening shift being SR. Denies nausea. BT present and abdomen is soft. Denies dysuria, frequency or urgency and is continent of urine. Able to turn self in bed. Is steady on feet but for safety receives SBA when up to bathroom; steady on feet. Had SCD's on at shift change but after being up to bathroom at 2331 requested they be removed and now declines to have them back on despite information provided re: DVT prevention; reminded to ankle wave when awake and patient verbalizes understanding. Denies pain. CIWA score is 0. Fall risk score is moderate and bed alarm is activated.
[2019-04-07 03:30] VITALS: BP 140/82; PULSE 58; RESP 12; TEMP 36.3; O2SAT 98
[2019-04-07 07:30] VITALS: BP 138/90; PULSE 66; RESP 18; TEMP 36.4; O2SAT 99
[2019-04-07] MEDS: ASPIRIN EC 81 MG TABLET PO (08:38)
[2019-04-07 08:40] VITALS: O2SAT 98
--- NOTE | 2019-04-07 08:59 | P.DS_ITS ---
History of Present Illness Chief complaint: Stoke like symtoms Narrative: Written by myself Dr. Bajwa: Norberto Johnston is a 69-year-old male with a past medical history significant for tobacco dependence, alcohol dependence untreated hypertension and hyperlipidemia (previous statin intolerance) who presented for right-sided facial droop and slurred speech. The patient reports that yesterday morning around 10:00 a.m. his noticed right-sided facial droop and slurred speech which continued to persist throughout the afternoon and evening. This morning he noticed right-sided upper extremity weakness while brushing his hair. He has never had this before. He has no other symptoms and denies lightheadedness or dizziness, visual changes including blurry or double vision, shortness of breath, chest pain, palpitations, abdominal pain, nausea, vomiting, fever, chills, dysuria, diarrhea or constipation. His urged him to go to the ED due to persistence of symptoms. In the ED, CT and CTA brain did not demonstrate any acute intracranial process with moderate chronic small vessel ischemic changes and mild parenchymal volume loss. NIH score was a 2 for right-sided facial droop and slurred speech. He is being admitted for further evaluation and management. Discharge Providers Date of admission: 04/06/19 11:38 Discharge Date: 04/07/19 Consults: 04/06/19 11:39 Consult to Discharge Planning Routine Comment: Consult to Occupational Therapy Evaluate & Treat Comment: Physician Instructions: Evaluate and treat Consult to Physical Therapy Evaluate & Treat Comment: Physician Instructions: Evaluate and Treat 04/06/19 11:41 Consult to Speech Therapy Evaluate & Treat Comment: right facial droop and slurred speech Physician Instructions: Evaluate and treat 04/06/19 14:37 Consult to Tonnage Compilation Clerk Routine Comment: Discharge provider: Sandy Bajwa DO Summary Discharge Diagnosis: 1. Acute left frontal lobe CVA, present on admission. Active. 2. Hypertension, chronic, present on admission. Stable. 3. Hyperlipidemia, chronic, present on admission. Stable. 4. Tobacco dependence, chronic, present on admission. Stable. 5. Alcohol dependence, chronic, present on admission. Stable. Hospital Course: Norberto Johnston is a 69-year-old male with a past medical history significant for tobacco dependence, alcohol dependence untreated hypertension and hyperlipidemia (previous statin intolerance) who presented for right-sided facial droop and slurred speech. 1. Acute left frontal lobe CVA, present on admission. Active. -Patient presented with right-sided facial droop and slurred speech since 10:00 on 04/05/2019. -Initial NIH score 2. Continue to monitor NIH and neurological status frequently. -CT brain without contrast and CTA head and neck did not demonstrate any significant intracranial or neck abnormality including CVA, stenosis, or aneurysms. -MR stroke demonstrated a focal subacute infarction seen involving the deep white matter of the left frontal lobe. -Received aspirin 324 mg x1 in ED. Continued aspirin 81 mg daily. -Risk stratified: Hemoglobin A1c normal at 5.0% and fasting lipid panel which wa s uncontrolled and demonstrated: Total cholesterol 222, triglycerides 81, LDL 151 (goal l< 70), HDL 55. Patient has history of previous statin intolerance and would recommend reconsidering low-dose trial of rosuvastatin with close outpatient monitoring. -Allowed for permissive hypertension for 24-48 hours. Ordered labetalol for SBP > 220 mmHg or DBP > 110 mmHg. Started low dose losartan for hypertension after permissive hypertension period. Recommended monitoring blood pressure closely as an outpatient, titrating losartan as needed and checking renal function and 2-4 weeks. -Consulted PT/OT/ST for evaluation and treatment. Recommended outpatient speech therapy only. Occupational therapy noted delayed cognitive function and recommended against driving. 2. Hypertension, chronic, present on admission. Stable. -Allowed for permissive hypertension for 24-48 hours. -Started low dose losartan 25 mg daily and will need to be monitored including renal function in 2-4 weeks and titrated as needed outpatient by PCP. 3. Hyperlipidemia, chronic, present on admission. Stable. -Fasting lipid panel uncontrolled and demonstrated: Total cholesterol 222, triglycerides 81, LDL 151 (goal l< 70), HDL 55. -Patient has history of previous statin intolerance and would recommend reconsidering low-dose trial of rosuvastatin with close outpatient monitoring. 4. Tobacco dependence, chronic, present on admission. Stable. -Patient current smoker 0.75 packs per day. -Educated patient on smoking cessation and recommended indefinite abstinence. -Ordered nicotine patch 21 mg daily and provided outpatient prescription as needed for nicotine withdrawal. 5. Alcohol dependence, chronic, present on admission. Stable. -Patient currently drinks 4-6 beers every night. -Educated patient on alcohol use and recommended cut back or abstain indefinitely. -Monitored closely for signs of alcohol withdrawal of which the patient did not exhibit any. Status at Discharge Functional status at discharge: independent ambulation Overall status at discharge: patient is not back to baseline Exam Vital Signs (past 8 hours): - 04/07/19 03:30 04/07/19 07:30 Temperature 97.4 F L 97.6 F Pulse Rate 58 L 66 Respiratory Rate 12 18 Blood Pressure 140/82 138/90 Pulse Oximetry 98 99 Oxygen Delivery Method Room Air Oxygen Flow Rate 0 Narrative Exam Narrative: General: Older gentleman sitting in bed and in no acute distress, well-developed, well-nourished, appropriately interactive. HEENT: Normocephalic, atraumatic. External ears without defect. Pupils equal, round, and reactive to light. Anicteric sclerae, moist conjunctivae, and right- sided lid lag and facial droop. Oropharynx free of erythema and cobble stoning with moist mucosa. Neck: Supple with full range of motion. No jugular venous distension. No bruits. No lymphadenopathy or thyromegaly. Cardiovascular: Regular rate and rhythm without murmurs, rubs, or gallops appr eciated. Pulmonary: Clear to auscultation bilaterally without crackles, wheezes, or rhonchi. Normal respiratory effort with no use of accessory muscles. Abdomen: Soft, bowel sounds present, nontender, nondistended. No hepatosplenomegaly or masses appreciated. Extremities: No clubbing, cyanosis, or edema. Skin: Normal temperature, turgor, and texture; no rash, ulcers, or subcutaneous nodules appreciated. Neurological: Cranial nerves grossly intact. Persistent subtle right-sided facial droop and slurred speech. Normal muscle strength, tone, and bulk. Reflexes, coordination, and sensory function within normal limits. No known gait impairment. Cerebellar function intact with [id number] and [id number]. Psychiatric: Normal mood and affect. Alert and oriented to person, place, and time. Objective Labs Result Diagrams: 04/06/19 09:35 04/06/19 09:35 Labs: Laboratory Results - last 24 hr 04/06/19 04/06/19 04/06/19 09:35 09:35 09:35 WBC 6.1 RBC 4.80 Hgb 15.3 Hct 44.8 MCV 93.3 MCH 31.8 MCHC 34.0 RDW 13.6 Plt Count 328 Neut % (Auto) 51.2 Lymph % (Auto) 27.5 Hubbard % (Auto) 11.8 Eos % (Auto) 8.1 H Baso % (Auto) 1.4 Neut # (Auto) 3100 Lymph # (Auto) 1700 Hubbard # (Auto) 700 Eos # (Auto) 500 H Baso # (Auto) 100 PT 11.1 INR 1.0 APTT 31 Sodium 138 Potassium 4.8 Chloride 104 Carbon Dioxide 26 BUN 19 Creatinine 0.90 Estimated GFR > 60.0 BUN/Creatinine Ratio 21.1 Glucose 103 Hemoglobin A1c Calcium 9.1 Total Bilirubin 0.8 AST 25 ALT 25 Alkaline Phosphatase 41 Troponin I < 0.012 Total Protein 7.1 Albumin 4.2 Globulin 2.9 Albumin/Globulin Ratio 1.4 Triglycerides Cholesterol LDL Cholesterol, Calc HDL Cholesterol 04/06/19 04/06/19 09:35 09:35 WBC RBC Hgb Hct MCV MCH MCHC RDW Plt Count Neut % (Auto) Lymph % (Auto) Hubbard % (Auto) Eos % (Auto) Baso % (Auto) Neut # (Auto) Lymph # (Auto) Hubbard # (Auto) Eos # (Auto) Baso # (Auto) PT INR APTT Sodium Potassium Chloride Carbon Dioxide BUN Creatinine Estimated GFR BUN/Creatinine Ratio Glucose Hemoglobin A1c 5.0 Calcium Total Bilirubin AST ALT Alkaline Phosphatase Troponin I Total Protein Albumin Globulin Albumin/Globulin Ratio Triglycerides 81 Cholesterol 222 H LDL Cholesterol, Calc 151 H HDL Cholesterol 55 Discharge Plan Discharge Plan Patient Disposition: Home Discharge comment: You are being discharged home. You have had a left frontal lobe stroke. You have been prescribed aspirin 81 mg daily for stroke prevention. You may want to consider restarting a low dose of Crestor with close outpatient monitoring for further stroke prevention. Your echocardiogram was within normal limits and did not demonstrate any signs of previous heart attack, valve disease, or septal defect. You do have dilated bilateral atria likely due to uncontrolled high blood pressure, smoking and/or obstructive sleep apnea which can put you at risk of arrhythmias such as atrial fibrillation and blood clots. Recommend outpatient speech therapy for which you were provided a prescription but may need a referral from your PCP. Please follow up at your scheduled appointment with Dr. Portillo on 04/16/2019 at 1:45 p.m. to discuss your hospitalization and to establish care. Please monitor your blood pressure closely at home and at the doctor's office. You have been prescribed Losartan 25 mg daily which may need to be titrated up and your kidney function checked in the next several weeks. Your also prescribed nicotine patch daily to help with nicotine withdrawal and smoking cessation. Please do not drive for at least 6 months and recommend repeat cognitive evaluation before doing so. Discharge Med Rec/Prescriptions Prescriptions: New aspirin 81 mg Tablet,Delayed Release (Dr/Ec) 81 mg PO DAILY Qty: 30 RF: 0 losartan 25 mg Tablet 25 mg PO DAILY Qty: 30 RF: 0 nicotine 21 mg/24 hr Patch 24 Hour 21 mg topical DAILY Qty: 21 RF: 0 Follow up/Referrals: Nancy Portillo MD [Physician] - 04/16/19 1:45 pm (Follow up with Dr. Portillo @ [facility] April 16 @ 1:45 p.m. please complete and turn in new patient paperwork prior to appt. If you do not turn in paperwork prior to appt please show up to appt early @ 1:30 p.m. ) Provider Discharge Instructions Diet: Diet as Tolerated, Low-fat, Low-sodium and Low-cholesterol Activity: Activity as tolerated Visit Report/Discharge Packet Instructions: The Mediterranean Diet and Good Health, The DASH Diet, Alcohol Use Disorder, DI for Stroke-Ischemic, How to Quit Smoking, Losartan, Mediterranean Diet May Reduce the Risk of Stroke in People with High Risk o Discharge Data Attending Provider: Sandy Bajwa Admit Date/Time: 04/06/19 11:38 Quality VTE Deep Vein Thrombosis/Pulmonary Embolism Present on Admission: No
--- NOTE | 2019-04-07 10:42 | PT.IIE ---
Current Diagnoses Cerebral infarction, unspecified (04/06/19) Surgical History (Last Updated 04/06/19 @ 17:57 by Sandy Bajwa DO) H/O cataract removal with insertion of prosthetic lens (Acute) Medical History (Last Updated 04/06/19 @ 17:57 by Sandy Bajwa DO) Alcohol dependence (Acute) Hyperlipidemia (Acute) Hypertension (Acute) Inguinal hernia (Acute) Tobacco abuse disorder (Acute) Healthy adult (Acute) Physical Therapy Inpatient Evaluation/Re-Eval M1 PT/OT-IP Prior Functional Status Start: 04/07/19 12:26 Freq: NEEDED Status: Active Protocol: Document 04/07/19 10:42 AB (Rec: 04/07/19 12:42 AB [id number]) Medical Review Prior Functional Status Medical History Reviewed Yes Communication able to make needs known Mobility and Gait pt stated that he is independent with all mobilities and ambulation without AD Social History Household Members spouse Living Arrangements House Number of Floors (Floors) Two Floors Number of Stairs To Enter/Railing? pt has a daylight basement: has 1 step to enter from the front has 17 steps to enter from the garage with L rail ascending Home Environment High Toilet Walk in Shower Built-In Shower Seat Home Equipment Hand Held Shower Employment Status Retired M1 PT/OT-IP Prior Functional Status Start: 04/07/19 12:27 Freq: NEEDED Status: Active Protocol: Document 04/07/19 10:42 AB (Rec: 04/07/19 12:42 AB [id number]) M2 PT-IP Current Condition Start: 04/07/19 12:27 Freq: NEEDED Status: Active Protocol: Document 04/07/19 10:42 AB (Rec: 04/07/19 12:42 AB [id number]) Physical Therapy Current Condition Current Condition Evaluation Date 04/07/19 Treatment Diagnosis L frontal lobe CVA; difficuly in walking Onset Date 04/06/19 M3 PT-IP Subjective Start: 04/07/19 12:27 Freq: NEEDED Status: Active Protocol: Document 04/07/19 10:42 AB (Rec: 04/07/19 12:42 AB [id number]) Subjective Physical Therapy Visit Type Type Initial Evaluation Visit Start Time 10:42 Visit Stop Time 11:04 Total Visit Minutes 22 Number of DIE HARDENER Visits 0 Physical Therapy Visit Comments Patient Comments pt agreeable to do PT Therapy Pain Assessment Pain Present Pain Present Denied Pain M4 PT-IP Mobility and Gait Start: 04/07/19 12:27 Freq: NEEDED Status: Active Protocol: Document 04/07/19 10:42 AB (Rec: 04/07/19 12:42 AB [id number]) PT-Bed Mobility Assessment Supine to Sit Supine to Sit Independent Sit to Supine Sit to Supine Independent PT-Transfer Assessment Sit to and From Stand Sit to and from Stand Standby Assistance Equipment Transfer Assistive Device Gait Belt Orthotic/Prosthetic Devices or Brace: No Transfers Transfer Destination Bed Chair Transfer Technique Stand Step Pivot Transfer Ability Level of Assist Standby Assistance Gait Assessment Gait Gait Assistance Required: Standby Assistance Distance (Feet) 250 Assistive Devices Assistive Device None Gait Belt Orthotic/Prosthetic Devices or Brace: No Gait Deviations General Gait Pattern Antalgic Factors Limiting Gait Function Factors Limiting Gait Function Poor Balance Stair Climbing Assessment Evaluation Level of Assist On Stairs Standby Assistance 1 Person Assistance Devices Stair Climbing Assistive Devices None Left Railing Technique/Endurance Stair Climbing Direction Ascend and Descend Stair Climbing Technique Step Over Step Number of Steps Climbed 3 Query Text: Stair Climbing Set # Repetitions (reps) 6 Comments Stair Climbing Comments completed up/down steps using L rail ascending SBA; also completed up/down 1 step without rails SBA PT-Balance Assessment Sitting Balance and Reactions Static Sitting Balance Ability Normal Dynamic Sitting Balance Ability Normal Standing Balance and Reactions Static Standing Balance Ability Normal Dynamic Standing Balance Ability Good Device Used without AD Balance Tests Single Limb Standing F- Functional Assessments Functional Tests Tinetti Balance and Gait Assessment bal score: 15/16 gait score 9/ 12 total score 24/28 Other Functional Tests Performed Tinetti total score: 24/28: low fall risk M5 PT-IP Objective Assessments Start: 04/07/19 12:27 Freq: NEEDED Status: Active Protocol: Document 04/07/19 10:42 AB (Rec: 04/07/19 12:42 AB [id number]) Orientation Orientation/Cognition Level of Alertness Alert Orientation Name Language Function Ability No Deficits Noted Safety Awareness Understands Safety Issues Gross Range of Motion Lower Extremity ROM Assessment Within Functional Limits Strength Lower Extremity Strength Assessment Within Functional Limits Coordination Assessment Gross Coordination Gross Coordination WNL Sensation Assessment Sensation Gross Sensation WNL Muscle Tone Muscle Tone WNL Yes M6 PT-IP Treatment Start: 04/07/19 12:27 Freq: NEEDED Status: Active Protocol: Document 04/07/19 10:42 AB (Rec: 04/07/19 12:42 AB [id number]) Physical Therapy Treatment Education Education Provided Safety M7 PT-IP Assessment and Plan Start: 04/07/19 12:27 Freq: NEEDED Status: Active Protocol: Document 04/07/19 10:42 AB (Rec: 04/07/19 12:42 AB [id number]) PT Summary Assessment and Plan Potential Rehabilitation Potential Good Status of Condition at Evaluation Stable Summary Impairments Balance Gait Assessment Summary pt requiring SBA with mobility . Pt will have spouse to assist him at home. pt has difficulty with high level standing balance activities but without any LOB during ambulation. pt stated that he has balance issues from before. educated pt on safety . pt understood. Goals Transfer Goal Independent Gait Goal Independent Gait Distance >300 Other Goals up/down steps without rails Mod I Days to Meet Goals 3 Frequency of Treatment Frequency Of Treatment Once a Day Treatment Plan Physical Therapy Treatment Plan Bed Mobility Training Transfer Training Gait Training Therapeutic Exercise Balance Retraining Discharge Planning Hot or Cold Pack Neuromuscular Re-ed Coordination Retraining Manual Therapy Recommendations To Nursing Amount of Assist Needed Standby Assistance Discharge Recommendations PT Discharge Recommendations Home with Assistance
[2019-04-07 11:27] VITALS: BP 137/77; PULSE 64
[2019-04-07] MEDS: LOSARTAN 25 MG TABLET PO (11:27)
--- NOTE | 2019-04-07 12:14 | PC.NURSE ---
Day Shift- Pt A&OX4, able to make needs known using call light. NIH score 4, pt had slight slur with some words and reading sentences, pt agrees with this. Also right facial droop mostly noted to the right upper lip area. Also had some weakness with coffee grinder strength to right hand. Pt is naturally left handed also. RUE and RLE slight drift downwards. No other symptoms noted. CIWA score is 0. Pt ambulating in room with SBA steady gait. Pt given Losartan scheduled med at 1127, see MAR and instructions on risks and benefits given to pt and his . ECHO bubble study complete. OT and PT have seen pt. Dr. Bajwa in with pt and his for discharge instructions.
--- NOTE | 2019-04-07 12:44 | OT.IP.EVAL ---
Current Diagnoses Cerebral infarction, unspecified (04/06/19) Past Medical History (Last Updated 04/06/19 @ 17:57 by Sandy Bajwa DO) Alcohol dependence (Acute) Hyperlipidemia (Acute) Hypertension (Acute) Inguinal hernia (Acute) Tobacco abuse disorder (Acute) Healthy adult (Acute) Surgical History (Last Updated 04/06/19 @ 17:57 by Sandy Bajwa DO) H/O cataract removal with insertion of prosthetic lens (Acute) Occupational Therapy Inpatient Evaluation/Re-Eval M1 PT/OT-IP Prior Functional Status Start: 04/07/19 12:26 Freq: NEEDED Status: Active Protocol: Document 04/07/19 12:26 [facility] (Rec: 04/07/19 12:44 [facility] [id number]) Medical Review Prior Functional Status Medical History Reviewed Yes Diet/Fluid Consistency Regular Thin Liquids Communication Independent Mobility and Gait Independent without a device. Activities of Daily Living and IADL's Independent with ADl's, IADl's and driving. Social History Household Members spouse Living Arrangements House Number of Floors (Floors) Two Floors Number of Stairs To Enter/Railing? One step from the front and 17 steps and left hand rail from the garage. Home Environment Standard Height Toilet Walk in Shower Built-In Shower Seat Employment Status Retired M1 PT/OT-IP Prior Functional Status Start: 04/07/19 12:27 Freq: NEEDED Status: Active Protocol: Document 04/07/19 10:42 AB (Rec: 04/07/19 12:42 AB [id number]) M2 OT-IP Current Condition Start: 04/07/19 12:26 Freq: Status: Active Protocol: Document 04/07/19 12:26 [facility] (Rec: 04/07/19 12:44 [facility] [id number]) Occupational Therapy Current Condition Current Condition Evaluation Date 04/07/19 Treatment Diagnosis L frontal lobe subacute infarction, weakness Weight Bearing Status Weight Bearing Status Weight Bear as Tolerated M3 OT- IP Subjective and Pain Start: 04/07/19 12:26 Freq: Status: Active Protocol: Document 04/07/19 12:26 [facility] (Rec: 04/07/19 12:44 [facility] [id number]) OT- Subjective Occupational Therapy Visit Type Type Initial Evaluation Visit Start Time 10:05 Visit Stop Time 10:35 Total Visit Minutes 30 Occupational Therapy Visit Comments Patient Comments Pt's present for OT eval. Patient/Caregiver Goals To go home. OT Pain Assessment Pain When Pain Assessed At Rest Pain Present Pain Present Denied Pain M4 OT- IP ADL's Start: 04/07/19 12:26 Freq: Status: Active Protocol: Document 04/07/19 12:26 [facility] (Rec: 04/07/19 12:44 [facility] [id number]) OT ADL-Grooming General Evaluation Grooming Ability Independent Comments OT Grooming Comments Pt able to stand at the sink to do all grooming needs. OT ADL-Oral Care General Eval Oral Care Ability Independent OT ADL-Dressing General Eval Lower Body Dressing Ability Independent Comments OT Dressing Comments Pt able to sit to don/doff socks. OT ADL-Toileting Comments OT Toileting Comments Pt able to independently sit on the toilet and get off . OT ADL-Bathing Comments OT Bathing Comments Pt states to shower at home. M5 OT- IP IADL's Start: 04/07/19 12:26 Freq: Status: Active Protocol: Document 04/07/19 12:26 [facility] (Rec: 04/07/19 12:44 [facility] [id number]) OT-Instrumental Activities of Daily Living Home Safety Awareness Awareness of Need for Assistance at Home Good Awareness Ability to Problem Solve Emergency Able to Problem Solve Situations Home Safety Comments Suggested to have supervise pt during IADl needs. M6 OT- IP Functional Cognition Start: 04/07/19 12:26 Freq: Status: Active Protocol: Document 04/07/19 12:26 [facility] (Rec: 04/07/19 12:44 [facility] [id number]) Cognitive Factors Limiting Selfcare Function Cognitive Ability Level of Alertness Alert Patient Orientation Name Place Situation Attention Span Ability Capable of Focused Attention Capable of Sustained Attention Ability to Follow Commands Able to Follow Multi-Step Commands Memory Description No Deficits Noted Safety Awareness No Deficits Noted Problem Solving Ability No deficits Noted Executive Function Ability Unable to Remember Details Cognitive Tests ACL Pt scored 5.2 out of 6.0 which implies pt may live with someone who does a weekly checks to monitor safety and examine potential dangerous side effects of impulsive behaviors. A score of 5.6 implies safe driving. Cognitive Comments Cognitive Assessment Comments Pt scored 138 seconds and one verbal cue for directions on [place] [employer] which implies moderate to severe impairments for visual attention, executive thinking, mental flexibility. A score of greater then 180 seconds implies that someone more likely to get into a car accident. At this time suggested pt not to drive and have monitor him for safety and sit with him initially. OT- Vision and Hearing OT- Hearing Assessment OT- Hearing Assessment WFL M7 OT- IP Mobility and Balance Start: 04/07/19 12:26 Freq: Status: Active Protocol: Document 04/07/19 12:26 [facility] (Rec: 04/07/19 12:44 [facility] [email or web address]) OT-Transfer Assessment Sit to and From Stand Sit to and from Stand Independent Transfers Transfer Ability Independent Technique Transfer Destination Chair Toilet Devices Transfer Assistive Devices None Comments Mobility Comments Pt able to walk independently in the room. OT- Balance Assessment Sitting Balance and Reactions Static Sitting Balance Ability Normal Dynamic Sitting Balance Ability Normal Standing Balance and Reactions Static Standing Balance Ability Normal M8 OT- IP Objective Assessments Start: 04/07/19 12:26 Freq: Status: Active Protocol: Document 04/07/19 12:26 [facility] (Rec: 04/07/19 12:44 [facility] [id number]) OT Gross Range of Motion Upper Extremity Range of Motion Assessment Within Functional Limits OT Strength Upper Extremity Strength Assessment Within Functional Limits OT- Coordination Assessment Upper Extremity Finger to Nose Test Within Functional Limits OT-Muscle Tone Assessment Muscle Tone WNL Yes M9 OT- IP Assessment and Plan Start: 04/07/19 12:26 Freq: Status: Active Protocol: Document 04/07/19 12:26 [facility] (Rec: 04/07/19 12:44 [facility] [id number]) OT Summary Assessment and Plan Potential Rehabilitation Potential Excellent Analytic Complexity at Evaluation Low Summary OT Impairments Functional Cognition Functional Mobility Assessment Summary Pt low complexity and main deficits are executive problem solving and high level dynamic balance. Pt has a supportive to assist with needs and aware to provide supervision for needs. Goals Patient/Caregiver Education Goal Caregiver Independent Assisting Patient Days to Meet Goals 1 Frequency of Treatment Frequency Of Treatment Discharge Discharge Recommendations OT Discharge Recommendations Home with Assistance
[2019-04-07] MEDS: NICOTINE 21 MG PATCH TOP (12:55)
--- NOTE | 2019-04-07 14:06 | PC.NURSE ---
Day Shift- Discharge summary packet reviewed with pt and his . All questions answered. Reviewed DASH diet, not Mediterranean diet. Pt states no new symptoms and is ready to go home. Prescriptions X3 given and script for Speech Therapy. Aware to call to make appointment. Pt left unit via wheelchair with CERTIFIED MASTER SAFECRACKER at [phone] in no distress with all belongings.
--- NOTE | 2019-04-07 15:17 | CM.DANOTE ---
DCP/Assessment: Reviewed chart. Patient is a 69yr old male admitted to .. with stroke like symptoms. Patient currently without PCP. Primary payor is 1)Medicare 2)Healthcare Management. Met with patient and spouse/Elin at bedside explained CM/SW role. Patient reports that he is completely I in all ADL's. Spouse reports that they recently moved to [place] and looking for PCP's. Spouse provided with name and numbers of providers in area. Patient denies any current deficits related to stroke. Patient actively smokes cigarettes and drinks beer daily. Patient denies either being a problem. Patient denies needing any community resources. Spouse reports that she will assist patient with cutting down on his daily drinking. Patient hopes to d/c home today. Do not anticipate any d/c planning needs. 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 No History Provided By Patient Significant Other Prior Living Arrangements House Household Members spouse Type of transporation used prior to Drives own vehicle admit Independent with ADL's Yes Is patient alert and oriented? Yes Caregiver for Another No Barriers to Discharge No Discharge Plan Home Transportation Arrangement Spouse to provide transport. Additional Comment No resources requested Whiteboard Updated in Patient Room with Yes name and ext. # of [employer] Machine Operator Review Status In Process Next Review Type Continued Stay Review
== END 2019-04-07 13:25 | disposition home or self-care (01) | DRG 66 ==
LOC: ED 11:15 → AC 11:39
PROVIDERS: Admitting Provider Internal Medicine; Emergency Provider Emergency Medicine; Visit Provider Internal Medicine
DX: I63.9 Cerebral infarction, unspecified (principal); R47.81 Slurred speech; R29.810 Facial weakness; F10.20 Alcohol dependence, uncomplicated; R29.702 NIHSS score 2; F17.210 Nicotine dependence, cigarettes, uncomplicated; I10 Essential (primary) hypertension
CPT/HCPCS: 36591; 70450; 70496; 70498; 70548; 70553; 80053; 80061; 83036; 84484; 85025; 85610; 85730; 92610; 93005; 93306; 97161; 97165; 99284; Q9967

== ENCOUNTER 2019-04-17 13:08 | Outpatient (RCR) | payer MEDICARE, OTHER, SELFPAY ==
[2019-04-06 14:25] VITALS: BMI 27.1
--- NOTE | 2019-04-17 15:32 | ST.OPIE ---
Provider Information Visit Care Team Role Provider Type Delano Hays MD Primary Care Provider Physician Specialty: Internal Medicine Address: [address] [place] [address], [id number] Email: Nancy Portillo MD Attending Provider Physician Specialty: Internal Medicine Address: [address] [place] [address], [id number] Email: Speech-Language Pathology Initial Evaluation REFINING SUPERVISOR Motor Speech Evaluation Start: 04/17/19 14:18 Freq: Status: Active Protocol: Document 04/17/19 14:25 [facility] (Rec: 04/17/19 14:33 [facility] [id number]) Motor Speech Evaluation Session Time Visit Start Time 13:35 Visit Stop Time 14:05 Total Visit Minutes 30 Visit Information Visit Number 1 Plan of Care Dates 04/17/19-04/18/19 Insurance Information Medicare Setting Setting Outpatient Care Next Note Type Next Note Type Discharge Summary Patient History Source: [employer]). 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 He was discharged home on 04/07/19. He is accompanied by his today who is concerned about ongoing facial droop. Referral Referring Physician Dr. Nancy Portillo Reason for Referral Dysarthria Mental Status Mental Status Alert Cooperative Oral Motor Lips Function Mild Impairment Observation at rest Mild right droop Tongue Function WNL Jaw Function WNL Soft Palate Function WNL Respiration/Phonation Phonation Quality WNL Function WNL Loudness WNL Oral Reading Quality WNL Function WNL Loudness WNL Conversation Quality WNL Duration WNL Loudness WNL Diadochokinetic Rates P^T^K^ Quality Mild Impairment Speech Intelligibility Word Severity WNL Sentence Severity WNL Conversation Severity WNL Awareness/Strategy Use Description Type of awareness/use Uses intermittently Findings Details Motor Speech Function WF Assessment Details Assessment Mr. Johnston presents with mild dysarthria affecting articulatory precision. He does not exhibit impairments in prosody, phonation, respiration or resonance. His speech is 100% intelligible in conversation; however, he has occasional difficulty with articulation of multisyllabic words including bilabial sounds. He also reports infrequently biting his lip when talking. He denies any numbness, drooling or difficulty eating. His caregiver reports she hears a slight difference in his speech on certain words, but more so notices a visible difference of his mouth when speaking. Friends have not seemed to notice a difference and family members have not noticed when speaking on the phone. We reviewed dysarthria speaking strategies which he was educated on during his hospitalization. He recalled and demonstrated understanding of these. Bilabial loaded sentences were provided for at -home practice and we discussed mirror use for visual feedback. Recommendations Therapy Recommendations Home exercise program consisting of sentences with bilabials utilizing dysarthria speaking strategies. No further outpatient speech therapy recommended due to mild severity of impairment. Patient/Family Education Education Described results of evaluation Patient Understanding Patient Demonstration
== END 2019-04-29 11:36 | disposition home or self-care (01) ==
LOC: SP 13:08
PROVIDERS: PCP Internal Medicine; Visit Provider Internal Medicine
DX: I63.9 Cerebral infarction, unspecified (principal)
CPT/HCPCS: 92522

== ENCOUNTER → 2019-04-30 09:56 | Outpatient (CLI) | payer MEDICARE, OTHER, SELFPAY ==
[2019-04-06 14:25] VITALS: BMI 27.1
[2019-04-30 10:38] LABS: Alanine Aminotransferase 23 IU/L (21-72); Aspartate Aminotransferase 17 IU/L (17-59); Cholesterol 164 mg/dL (140-199); HDL Cholesterol 49 mg/dL (40-60); LDL Cholesterol Calculated 89 mg/dL (<100); Triglycerides 130 mg/dL (35-150)
== END ==
PROVIDERS: PCP Internal Medicine; Visit Provider Internal Medicine
DX: E78.1 Pure hyperglyceridemia (principal)
CPT/HCPCS: 36415; 80061; 84450; 84460

== ENCOUNTER → 2019-07-23 16:08 | Outpatient (ROUT) | payer MEDICARE, OTHER, SELFPAY ==
[2019-06-19 16:44] VITALS: BMI 27.1
[2019-07-23 16:26] LABS: Aspartate Aminotransferase 21 IU/L (17-59); BUN Creatinine Ratio 23.3 (6-22); Blood Urea Nitrogen 21 mg/dL (9-20); Calcium 9.4 mg/dL (8.4-10.2); Carbon Dioxide 28 mmol/L (22-32); Chloride 100 mmol/L (98-107); Cholesterol 205 mg/dL (140-199); Estimated Glomerular Filt Rate > 60.0 mL/min (>60); Glucose 99 mg/dL (80-110); HDL Cholesterol 54 mg/dL (40-60); HEMOLYSIS < 15 (0-50); LDL Cholesterol Calculated 130 mg/dL (<100); Potassium 4.8 mmol/L (3.4-5.1); Sodium 136 mmol/L (137-145); Triglycerides 103 mg/dL (35-150)
[2019-07-23 16:57] LABS: Prostate Specific Antigen 1.27 ng/mL (0.10-4.00)
== END ==
PROVIDERS: PCP Internal Medicine; Visit Provider Internal Medicine
DX: I10 Essential (primary) hypertension (principal); E78.2 Mixed hyperlipidemia; N40.1 Benign prostatic hyperplasia with lower urinary tract symptoms
CPT/HCPCS: 80048; 80061; 84153; 84450

== ENCOUNTER → 2019-11-20 12:26 | Outpatient (CLI) | payer MEDICARE, OTHER, SELFPAY ==
[2019-06-19 16:44] VITALS: BMI 27.1
[2019-11-20 14:02] LABS: Cholesterol 207 mg/dL (140-199); HDL Cholesterol 44 mg/dL (40-60); LDL Cholesterol Calculated 142 mg/dL (<100); Triglycerides 104 mg/dL (35-150)
== END ==
PROVIDERS: PCP Internal Medicine; Referring Provider Internal Medicine; Visit Provider Internal Medicine
DX: E78.2 Mixed hyperlipidemia (principal)
CPT/HCPCS: 36415; 80061

== ENCOUNTER → 2020-03-19 15:34 | Outpatient (CLI) | payer MEDICARE, OTHER, SELFPAY ==
[2019-06-19 16:44] VITALS: BMI 27.1
[2020-03-20 10:21] LABS: COVID19 Sendout Not Detected (Not Detect)
== END ==
PROVIDERS: PCP Internal Medicine; Visit Provider Physician Assistant
DX: Z11.59 Encounter for screening for other viral diseases (principal)
CPT/HCPCS: 87635

== ENCOUNTER → 2020-05-11 10:02 | Outpatient (CLI) | payer MEDICARE, OTHER, SELFPAY ==
[2019-06-19 16:44] VITALS: BMI 27.1
[2020-05-11 11:58] LABS: Alanine Aminotransferase 22 IU/L (<50); Albumin 4.1 g/dL (3.5-5.0); Albumin Globulin Ratio 1.6 (1.0-2.8); Alkaline Phosphatase 48 U/L (38-126); Aspartate Aminotransferase 20 IU/L (17-59); Bilirubin Total 0.7 mg/dL (0.2-1.3); Bilirubin Unconjugated 0.7 mg/dL (0.0-1.1); Cholesterol 212 mg/dL (140-199); Globulin 2.6 g/dL (1.7-4.1); HDL Cholesterol 62 mg/dL (40-60); HEMOLYSIS < 15 (0-50); LDL Cholesterol Calculated 130 mg/dL (<100); Total Protein 6.7 g/dL (6.3-8.2); Triglycerides 100 mg/dL (35-150)
== END ==
PROVIDERS: PCP Internal Medicine; Referring Provider Internal Medicine; Visit Provider Internal Medicine
DX: E78.2 Mixed hyperlipidemia (principal)
CPT/HCPCS: 36415; 80061; 80076

== ENCOUNTER → 2020-07-27 14:44 | Outpatient (ROUT) | payer MEDICARE, OTHER, SELFPAY ==
[2019-06-19 16:44] VITALS: BMI 27.1
[2020-07-27 15:01] LABS: Aspartate Aminotransferase 23 IU/L (17-59); BUN Creatinine Ratio 24.1 (6-22); Blood Urea Nitrogen 20 mg/dL (9-20); Calcium 9.5 mg/dL (8.4-10.2); Carbon Dioxide 28 mmol/L (22-32); Chloride 104 mmol/L (98-107); Cholesterol 215 mg/dL (140-199); Estimated Glomerular Filt Rate > 60.0 mL/min (>60); Glucose 97 mg/dL (80-110); HDL Cholesterol 52 mg/dL (40-60); HEMOLYSIS 16 (0-50); LDL Cholesterol Calculated 140 mg/dL (<100); Potassium 4.8 mmol/L (3.4-5.1); Sodium 137 mmol/L (137-145); Triglycerides 115 mg/dL (35-150)
[2020-07-27 15:31] LABS: Prostate Specific Antigen 1.29 ng/mL (0.10-4.00)
== END ==
PROVIDERS: PCP Internal Medicine; Visit Provider Internal Medicine
DX: N40.1 Benign prostatic hyperplasia with lower urinary tract symptoms (principal); E78.2 Mixed hyperlipidemia; I10 Essential (primary) hypertension
CPT/HCPCS: 80048; 80061; 84153; 84450

== ENCOUNTER → 2021-01-02 09:29 | Outpatient (CLI) | payer MEDICARE, OTHER, SELFPAY ==
[2020-12-02 14:36] VITALS: BMI 27.1
[2021-01-02 10:21] LABS: COVID19 -Nasal RAPID Negative (Negative)
== END ==
PROVIDERS: PCP Internal Medicine; Visit Provider Surgery
DX: Z20.822 Contact with and (suspected) exposure to COVID-19 (principal)
CPT/HCPCS: 87635; C9803

== ENCOUNTER 2021-01-03 08:03 | Observation (INO) | payer MEDICARE, OTHER, SELFPAY ==
[2020-12-02 14:36] VITALS: BMI 27.1
[2021-01-03] VITALS (14 sets, daily range): BP systolic 113–151; BP diastolic 65–88; PULSE 66–104; RESP 10–19; TEMP 36.3–37.4; O2SAT 94–97; BMI 30.1
[2021-01-03] MEDS: LACTATED RINGERS 1,000 ML 100 ML IV (08:47)
--- NOTE | 2021-01-03 09:03 | PM.PREOP ---
Pre-operative Note Interval Note History & Physical reviewed/Exam performed by Physician: Yes Changes to H&P: No
[2021-01-03] MEDS: CEFAZOLIN 2 GM/100 ML FROZ.PIGGY IV (09:18)
--- NOTE | 2021-01-03 09:37 | SUR.OPER ---
Supine on padded OR bed, head on pillow, arms secured on padded arm boards at <90 degrees abduction, legs uncrossed, safety belt at thigh, tape over blanket over lower legs.
[2021-01-03] MEDS: BUPIVACAINE 0.25% (PF) VIAL 30 ML INJ (09:46)
--- NOTE | 2021-01-03 11:01 | PM.OP.1 ---
Operative Date/Time/Diagnoses Date of procedure: 01/03/21 Time of procedure: 11:01 Pre-op diagnosis: reducible left inguinal hernia Post-op diagnosis: same Procedure & Clinicians Procedure: open left inguinal hernia repair with mesh Same procedure as scheduled: Yes Indications: symptomatic reducible inguinal hernia Surgeon: Ernie Egan Anesthesia Type: General Operative Notes Findings: Indirect left inguinal hernia containing omentum Specimen(s): none sent Estimated Blood Loss (mL): 20 Procedure in detail: The patient was placed supine on the table and bilateral lower extremity compression devices were applied. Anesthesia was induced they were intubated with an LMA and received 2g of Ancef. A time-out was performed. They were prepped and draped in sterile fashion. The left external inguinal ring and the anterior superior iliac crest were identified and marked. 1 finger breath above the inguinal ligament the skin was infiltrated with 0.25% bupivacaine. The skin incision was made here and the subcutaneous tissues were divided with electrocautery exposing the external oblique aponeurosis which was then opened along the direction of its fibers. Using blunt dissection the internal oblique aporneurosis was from the external oblique upper leaflet to identify the iliohypogastric nerve. Using a kittner the cord was carefully dissected away from the inguinal canal adjacent to the pubic tubercle. The cord including the vas deferens, testicular bloody supply, ilioguinal and genital nerve were encircled with a Janene drain. No direct floor defect was identified. The cremasteric fibers surrounding the cord were divided using electrocautery adjacent to the internal ring.. The vas deferens and the testicular vessels were preserved and protected. There was a moderate size indirect hernia on the anterior medial aspect of the cord which contained omentum. The hernia sac was skeletonized away from the vas deferens and testicular blood supply. The indirect hernia was skeletonized back to the internal ring and reduced spontaneously into the abdomen. The internal ring was large and so I placed a plug of mesh into the ring secured with Vircyl to the inguinal ligament and the internal oblique. I selected a 7x 15 cm lightweight Pro Loop hernia mesh. The inferior medial aspect of the mesh was anchored to insertion of the rectus muscle to the pubic tubercle such that there was approximately 2 cm of tubercle overlap with Ethibond and then was run continuously along the inferior edge of the mesh to the shelving edge of the inguinal ligament. Interrupted 3 0 Vicryl suture was used to anchor the superior aspect of the mesh to the conjoined tendon in several places. The tails were then reapproximated loosely around the spermatic cord. The tails of the mesh were then tucked under the external oblique aponeurosis. The repair was checked for hemostasis. The wound was irrigated with sterile saline. The external oblique aponeurosis was reapproximated in a running fashion using 3 0 Vicryl. The subcutaneous tissues were reapproximated with 3 0 Vicryl skin closed with 4 0 Monocryl followed by the application of Dermabond. At the end of the operation I ensured that both testicles were within the scrotum. The sponge instrument count at the end operation was correct. The patient emerged from anesthesia was extubated and transferred to the postoperative care unit in stable condition. A total of 30 ml of of 0.25% bupivicaine was used to infiltrate the skin. Complications: none Post-operative Condition: stable Disposition: same day surgery
[2021-01-03] MEDS: OXYCODONE/ACETAMINOPHEN 5/325 TABLET 1 TAB PO (11:09)
[2021-01-03] MEDS: ONDANSETRON 4 MG/2 ML INJ IV (11:10)
--- NOTE | 2021-01-03 12:21 | SUR.PHASEII ---
Addendum entered by Aleksandr Argueta R.N. 01/03/21 12:49: DR. RAMOS HAS SEEN PATIENT, ATTEMPTED TO STAND PATIENT WITH RECURRENT LEG BUCKLING. DR. RAMOS STATES IS RELATED TO LOCAL ANESTHESIA AND WILL RESOLVE OVER TIME. DR. RAMOS UPDATED SPOUSE VIA TELEPHONE. CHARGE NURSE NOTIFIED. PLAN TO KEEP PATIENT ANOTHER HR OR SO AND RE-EVALUATE. Original Note: POST-OP: LEFT QUAD WEAKNESS. 1155: WAS ASKED TO TAKE OVER CARE OF PATIENT. PATIENT IS LAYING DRESSED ON STRETCHER. REVIEWED DC HOME INSTRUCTIONS WITH PATIENT. PATIENT CONFIRMS UNDERSTANDING. ASSISTED PATIENT TO STANDING, LEFT QUAD WEAKNESS WITH SIGNIFICANT LEFT LEG BUCKLING. SAT PATIENT BACK DOWN ON STRETCHER. ATTEMPTED TWO MORE TIMES WITH SAME RESULT. INCISION W/ STERISTRIPS CDI, NO DRAINAGE. CMS INTACT, PEDAL PULSES PRESENT. STRONG DORSI-FLEXION AND PLANTAR FLEXION. BRISK CAP REFILL. STATES LEFT QUAD FEELS NUMB. PATIENT WAS ASSISTED BACK TO LAYING ON STRETCHER. WENT INTO DR. RAMOS'S CURRENT CASE, NOTIFIED OF FINDINGS. DR. RAMOS WILL SEE PATIENT ONCE CURRENT CASE CLOSES. HOLD PATIENT IN PHASE 2 RECOVERY FOR NOW. NOTIFIED PATIENT'S SPOUSE OF DELAY WITH RATIONALE. VSS. PATIENT ALERT AND ORIENTED X4, NO FACIAL DROOP, NO SLURRED SPEECH, HRR, DENIES CHEST PAIN OR SHORTNESS OF BREATH. ALKYLATION OPERATOR EQUAL AND STRONG. BL UPPER EXTREMITIES WITHOUT DRIFT. DIFFICULTY WITH STRAIGHT LEG RAISE TO LLE. CHARGE NURSE NOTIFIED.
--- NOTE | 2021-01-03 15:08 | DI.CT.S_ITS ---
PROCEDURE: CT HEAD/BRAIN WO CON INDICATIONS: LLE weakness post hernia repair. History of prior stroke TECHNIQUE: Noncontrast 4.5 mm thick angled axial sections acquired from the foramen magnum to the vertex, with coronal and sagittal reformats. For radiation dose reduction, the following was used: automated exposure control, adjustment of mA and/or kV according to patient size. COMPARISON: [facility], MR, MR STROKE, 04/06/2019, 13:08. [facility], CT, CT ANGIO HEAD AND NECK, 04/06/2019, 9:41. [facility], CT, CT HEAD/BRAIN WO CON, 04/06/2019, 9:41. FINDINGS: Image quality: Excellent. CSF spaces: Basal cisterns are patent. No extra-axial fluid collections. The ventricles are symmetric in size and shape. Brain: No intracranial bleeds or masses. There is cerebral volume loss for age, with resultant ventricular and sulcal prominence. There are periventricular and deep white matter chronic small vessel ischemic changes. There is intracranial internal carotid artery atherosclerosis. Skull and face: Calvarium and visualized facial bones appear intact, without suspicious lesions. Sinuses: Visualized sinuses and mastoids are clear. IMPRESSION: 1. No acute intracranial process. 2. Mild atrophy and chronic microvascular ischemic changes. Dictated by: Tammie Vila M.D. on 01/03/2021 at 15:48 Approved by: Tammie Vila M.D. on 01/03/2021 at 15:51
--- NOTE | 2021-01-03 16:10 | PT.IIE ---
Current Diagnoses Unilateral inguinal hernia, without obstruction or gangrene, not specified as recurrent (01/03/21) Surgery Performed Operation Date: 01/03/21 09:15 Actual Procedures p Hernia Repair - Inguinal(Left) - Ernie Egan MD Surgical History (Last Reviewed 12/08/20 @ 09:18 by Ernie Egan MD) H/O cataract removal with insertion of prosthetic lens Hx of hernia repair Medical History (Last Updated 01/03/21 @ 08:18 by Petrona Padilla RN) Alcohol dependence Healthy adult Hyperlipidemia Hypertension Inguinal hernia Normal echocardiogram Stroke Tobacco abuse disorder Urinary frequency Urinary urgency Wears glasses Physical Therapy Inpatient Evaluation/Re-Eval M1 PT/OT-IP Prior Functional Status Start: 01/03/21 16:48 Freq: NEEDED Status: Active Protocol: Document 01/03/21 16:10 AB (Rec: 01/03/21 17:04 AB [id number]) Medical Review Prior Functional Status Medical History Reviewed Yes Communication able to make needs known Mobility and Gait pt stated that he is independent with all mobilities and ambulation without AD Social History Household Members spouse Living Arrangements House Number of Floors (Floors) Two Floors Number of Stairs To Enter/Railing? 1 steps to enter from the front of the house; ~ 10 ft gravel walkway to the front of the house 17 steps from the garage L rail ascending (pt has a daylight basement) Home Environment High Toilet,Walk in Shower, Built-In Shower Seat Home Equipment Front Wheel Walker,Hand Held Shower M2 PT-IP Current Condition Start: 01/03/21 16:48 Freq: NEEDED Status: Active Protocol: Document 01/03/21 16:10 AB (Rec: 01/03/21 17:04 AB [id number]) Physical Therapy Current Condition Current Condition Evaluation Date 01/03/21 Treatment Diagnosis L inguinal hernia repair; difficulty in walking Onset Date 01/03/21 M3 PT-IP Subjective Start: 01/03/21 16:48 Freq: NEEDED Status: Active Protocol: Document 01/03/21 16:10 AB (Rec: 01/03/21 17:04 AB [id number]) Subjective Physical Therapy Visit Type Type Initial Evaluation Visit Start Time 16:10 Visit Stop Time 16:40 Total Visit Minutes 30 Number of HEADING AND PRIMING OPERATOR Visits 0 Physical Therapy Visit Comments Patient Comments pt is agreeable to do PT M4 PT-IP Mobility and Gait Start: 01/03/21 16:48 Freq: NEEDED Status: Active Protocol: Document 01/03/21 16:10 AB (Rec: 01/03/21 17:04 AB [id number]) PT-Bed Mobility Assessment Supine to Sit Supine to Sit Standby Assistance Sit to Supine Sit to Supine Standby Assistance PT-Transfer Assessment Sit to and From Stand Sit to and from Stand Maximum Assistance,2 Person Assistance,Use of Upper Extremities Comments Mobility Comments spouse in room with pt. completed supine to sit SBA. pt can be impulsive. pt was able to sit on EOB SBA. completed sit to stand max A x 2 using FWW for support and attempted x 2 with bilateral knee buckling noted. completed sit to supine SBA. positioned in bed. call light and table placed within reach . spouse expressed frustration since pt came in for an outpt procedure and is concerned about permanency of LE weakness. pt also voiced concern. informed spouse and pt regarding PT checking in tomorrow and informed that the doctor should be able to address concerns but as far as PT experience goes, informed pt and spouse that loss of strength/numbness and decrease motor control is not unusual after a surgery. informed pt and spouse that if they have other concerns later on, they can let the nurse know and the nurse can call the doctor if needed. Gait Assessment Comments Gait Comments unable at this time PT-Balance Assessment Sitting Balance and Reactions Static Sitting Balance Ability Good Dynamic Sitting Balance Ability Good Standing Balance and Reactions Static Standing Balance Ability Poor Dynamic Standing Balance Ability Poor Device Used FWW M5 PT-IP Objective Assessments Start: 01/03/21 16:48 Freq: NEEDED Status: Active Protocol: Document 01/03/21 16:10 AB (Rec: 01/03/21 17:04 AB [id number]) Orientation Orientation/Cognition Level of Alertness Alert Orientation Name,Place,Situation Language Function Ability No Deficits Noted Safety Awareness Decreased Safety Awareness Gross Range of Motion Lower Extremity ROM Assessment Within Functional Limits Strength Lower Extremity Strength Assessment Left Impaired Hip 3-/5 Knee 3-/5 Ankle 3+/5 Sensation Assessment Comments Sensation Comments able to feel light touch on BLE and discriminate location but stated that he is still numb on anterior and lateral L hip thigh area as well as buttock area. M6 PT-IP Treatment Start: 01/03/21 16:48 Freq: NEEDED Status: Active Protocol: Document 01/03/21 16:10 AB (Rec: 01/03/21 17:04 AB [id number]) Physical Therapy Treatment Education Education Provided Safety M7 PT-IP Assessment and Plan Start: 01/03/21 16:48 Freq: NEEDED Status: Active Protocol: Document 01/03/21 16:10 AB (Rec: 01/03/21 17:04 AB [id number]) PT Summary Assessment and Plan Potential Rehabilitation Potential Fair Status of Condition at Evaluation Evolving Summary Impairments Pain,ROM,Strength,Balance, Coordination,Sensation,Tone, Cognition,Bed Mobility, Transfers,Gait,Activity Tolerance Assessment Summary pt with LLE weakness and decrease motor control. (+) bilateral knee buckling during standing using FWW for support. pt has L inguinal hernia repair this morning and continues to c/o thigh and buttock numbness. PT claudine received and was informed that pt to be assessed if safe to go home as pt is in her for an outpt surgery procedure. at this time, pt still is unable to ambulate and is not safe to d/c home. will have to assess further for safe dc plan. Goals Bed Mobility Goal Independent Transfer Goal Standby Assistance,Front Wheeled Walker Gait Goal Standby Assistance,Front Wheel Walker Gait Distance 100 Other Goals improve transfers to independent improve ambulation without AD independent 200 ft up/down 1 steps without AD Days to Meet Goals 5 Frequency of Treatment Frequency Of Treatment Once a Day Treatment Plan Physical Therapy Treatment Plan Bed Mobility Training,Transfer Training,Gait Training, Therapeutic Exercise,Balance Retraining,Post Op Education, Discharge Planning,Hot or Cold Pack,Neuromuscular Re-ed, Coordination Retraining,Manual Therapy Recommendations To Nursing Amount of Assist Needed PT/OT Assist Only Discharge Recommendations PT Discharge Recommendations Home with 24/7 Assist Available,Home Health,SNF Rehab Other Discharge Recommendations depending on progress: SNF vs home with 24/7/HHPT Transportation Needs at Discharge Private Vehicle,Wheelchair/ Cabulance
[2021-01-03] MEDS: IBUPROFEN 600 MG TABLET PO (17:35)
--- NOTE | 2021-01-03 20:58 | PC.NURSE ---
Pt having relatively uneventful evening. Denies discomfort when asked. Is able to move left leg w/o incidence.. Assisted to stand at bedside to use urinal, Pt toleated well. Call light w/in reach, pt calls appropriately for needs. Continue w/plan of care.
[2021-01-04] MEDS: IBUPROFEN 600 MG TABLET PO (00:12)
[2021-01-04 01:20] VITALS: BP 138/83; PULSE 76; RESP 16; TEMP 37; O2SAT 97
[2021-01-04 05:38] VITALS: BP 131/92; PULSE 70; RESP 16; TEMP 36.6; O2SAT 96
--- NOTE | 2021-01-04 07:57 | PM.PN.1 ---
Subjective Subjective Date Patient Seen: 01/04/21 Time Patient Seen: 07:57 Interval history: Sensation LLE has returned to normal. Now full strength and ambulating. Minimal pain not requiring narcotics. Exam Vital Signs (past 8 hours): - 01/04/21 01:20 01/04/21 05:38 Temperature 98.6 F 97.9 F Pulse Rate 76 70 Respiratory Rate 16 16 Blood Pressure 138/83 131/92 H Pulse Oximetry 97 96 Oxygen Delivery Method Room Air Oxygen Flow Rate 0 Narrative Exam Narrative: Adult male alert and oriented LLE-normal strength with extension and flexion. [facility] Medical History (Updated 01/03/21 @ 08:18 by Petrona Padilla RN) Alcohol dependence Healthy adult Hyperlipidemia Hypertension Inguinal hernia Normal echocardiogram Stroke Tobacco abuse disorder Urinary frequency Urinary urgency Wears glasses Surgical History H/O cataract removal with insertion of prosthetic lens Hx of hernia repair Family History Father Heart attack Hypertension Heart disease Mother Dementia Hypertension Heart disease Brother Healthy adult Sister Healthy adult Brother Healthy adult Brother Healthy adult Social History marital status: household members: spouse lives independently: Yes occupational status: previously employed Smoking Status: Former smoker alcohol intake: current Assessment & Plan Assessment & Plan narrative: 70M POD 1 sp open L inguninal hernia repair. Observation last night for LLE weakness secondary to local anesthetic was unable to safely ambulate. Local has been metabolized now sensation and strength are normal. CTH was reviewed no evidence of CVA. OK to discharge.
[2021-01-04 08:06] VITALS: BP 148/79
[2021-01-04] MEDS: LOSARTAN 25 MG TABLET PO (08:06)
--- NOTE | 2021-01-04 08:54 | PC.NURSE ---
Pt is dressed and ready for discharge home with Spouse Elin. No IV access. Went over d/c instructions with Pt and Spouse. Discussed d/c meds, time of last dose, reviewed stroke education, no lifting >20#, drink plenty of fluids to prevent constipation or dehydration. No driving while on narcotics. Follow up in [address] Egan. Pt denies further questions and will be taken out via w/c by TOLL BRIDGE ATTENDANT to POV with Spouse and all belongings.
--- NOTE | 2021-01-04 09:08 | PT.IPTN ---
Current Diagnoses Unilateral inguinal hernia, without obstruction or gangrene, not specified as recurrent (01/03/21) Surgery Performed Operation Date: 01/03/21 09:15 Actual Procedures p Hernia Repair - Inguinal(Left) - Ernie Egan MD Physical Therapy Treatment Note M2 PT-IP Current Condition Start: 01/03/21 16:48 Freq: NEEDED Status: Discharge Protocol: Document 01/03/21 16:10 AB (Rec: 01/03/21 17:04 AB [id number]) Physical Therapy Current Condition Current Condition Evaluation Date 01/03/21 Treatment Diagnosis L inguinal hernia repair; difficulty in walking Onset Date 01/03/21 M3 PT-IP Subjective Start: 01/03/21 16:48 Freq: NEEDED Status: Discharge Protocol: Document 01/04/21 09:00 SP (Rec: 01/04/21 15:11 SP [id number]) Subjective Physical Therapy Visit Type Type Treatment Note Visit Start Time 09:00 Visit Stop Time 09:08 Total Visit Minutes 8 Notes in room attended tx session. Number of RESEARCH INSTRUCTOR Visits 1 Physical Therapy Visit Comments Patient Comments Pt willing to work with therapy. Therapy Pain Assessment Pain Present Pain Present Denied Pain M4 PT-IP Mobility and Gait Start: 01/03/21 16:48 Freq: NEEDED Status: Discharge Protocol: Document 01/04/21 09:00 SP (Rec: 01/04/21 15:11 SP [id number]) PT-Bed Mobility Assessment Supine to Sit Supine to Sit Independent Sit to Supine Sit to Supine Independent Scooting Scooting to Edge of Bed Independent PT-Transfer Assessment Sit to and From Stand Sit to and from Stand Independent,Use of Upper Extremities Equipment Transfer Assistive Device None,Gait Belt Orthotic/Prosthetic Devices or Brace: No Transfers Transfer Destination Bed Transfer Technique pt ambulated with no AD Transfer Ability Level of Assist Independent,Use of Upper Extremities Comments Mobility Comments Pt was seated at EOB when arrived. Completed sit<> supine I, sit<> stand I with use of 1 UE for support. Pt ambulated further distance into hallway with cuing for dynamic balance assessment stable, completed stair mgt, around nursing station and back to EOB with no AD, provided SBA. Pt is able to return home when medically cleared. Gait Assessment Gait Gait Assistance Required: Standby Assistance Distance (Feet) 260 Able to Maintain Weight Bearing Status Yes During Gait Assistive Devices Assistive Device None,Gait Belt Orthotic/Prosthetic Devices or Brace: No Gait Deviations General Gait Pattern Within Normal Limits Factors Limiting Gait Function Factors Limiting Gait Function Decreased Activity Tolerance, Decreased Strength Comments Gait Comments step over step patterning, instructed dynamic balance during gait: head turns, large steps - little deviation but self recovery, quick walk then stop, stable. Pt little increase in breath rate, tired when returned to room. Stair Climbing Assessment Evaluation Level of Assist On Stairs Independent Devices Stair Climbing Assistive Devices None,Right Railing Technique/Endurance Stair Climbing Direction Ascend and Descend Stair Climbing Technique Step Over Step Number of Steps Climbed 3 Stair Climbing Set # Repetitions (reps) 1 Comments Stair Climbing Comments Ascend/descend 1 platform step ( assimulate home enterance) SBA little over wt shift but self recovery then ascend/ descend 18 stairs using R HR step over step with no devations Mod I. PT-Balance Assessment Sitting Balance and Reactions Static Sitting Balance Ability Normal Dynamic Sitting Balance Ability Normal Standing Balance and Reactions Static Standing Balance Ability Good Dynamic Standing Balance Ability Good Device Used no AD Comments Other Balance Tests/Deviations/Treatment See gait comments. : M5 PT-IP Objective Assessments Start: 01/03/21 16:48 Freq: NEEDED Status: Discharge Protocol: Document 01/03/21 16:10 AB (Rec: 01/03/21 17:04 AB [id number]) Orientation Orientation/Cognition Level of Alertness Alert Orientation Name,Place,Situation Language Function Ability No Deficits Noted Safety Awareness Decreased Safety Awareness Gross Range of Motion Lower Extremity ROM Assessment Within Functional Limits Strength Lower Extremity Strength Assessment Left Impaired Hip 3-/5 Knee 3-/5 Ankle 3+/5 Sensation Assessment Comments Sensation Comments able to feel light touch on BLE and discriminate location but stated that he is still numb on anterior and lateral L hip thigh area as well as buttock area. M6 PT-IP Treatment Start: 01/03/21 16:48 Freq: NEEDED Status: Discharge Protocol: Document 01/04/21 09:00 SP (Rec: 01/04/21 15:11 SP [id number]) Physical Therapy Treatment Education Education Provided Safety M7 PT-IP Assessment and Plan Start: 01/03/21 16:48 Freq: NEEDED Status: Discharge Protocol: Document 01/04/21 09:00 SP (Rec: 01/04/21 15:11 SP [id number]) PT Summary Assessment and Plan Potential Rehabilitation Potential Fair Status of Condition at Evaluation Evolving Summary Impairments Pain,ROM,Strength,Balance, Coordination,Sensation,Tone, Cognition,Bed Mobility, Transfers,Gait,Activity Tolerance Progress Towards Goals Progressing Toward Goals Assessment Summary Pt improved mobility today, I during bed mobility and transfers, gait and stairs SBA due to wt shift and self corrections no AD. Pt is ok to return home when medically cleared with to assist as needed. Goals Bed Mobility Goal Independent Transfer Goal Standby Assistance,Front Wheeled Walker Gait Goal Standby Assistance,Front Wheel Walker Gait Distance 100 Other Goals improve transfers to independent improve ambulation without AD independent 200 ft up/down 1 steps without AD Days to Meet Goals 5 Frequency of Treatment Frequency Of Treatment Once a Day Treatment Plan Physical Therapy Treatment Plan Bed Mobility Training,Transfer Training,Gait Training, Therapeutic Exercise,Balance Retraining,Post Op Education, Discharge Planning,Hot or Cold Pack,Neuromuscular Re-ed, Coordination Retraining,Manual Therapy Recommendations To Nursing Amount of Assist Needed Standby Assistance Discharge Recommendations PT Discharge Recommendations Home with Assistance Transportation Needs at Discharge Private Vehicle
--- NOTE | 2021-01-04 12:09 | CM.DANOTE ---
DCP: Case received, EMR reviewed and met with patient. , Elin, was also present in room. Introduced self and role. Was able to obtain information from patient regarding his baseline activity status prior to having surgery. DCP assessment completed with information currently available. Patient is a 70 year old male who admitted yesterday morning to the care of the surgical team. PCP: Dr. Hays. Payer: confirmed: Medicare/Healthcare Management. Patient came to the hospital via private vehicle for a surgical procedure. He had hernia surgery secondary to having a unilateral inguinal hernia. Patient has his surgery yesterday morning. Met with patient in his room. He was sitting up on the edge of the bed, was also present. He stated, he is ready to go home. Patient had some difficulty working with P.T. yesterday, secondary to the anesthesia used, but able to ambulate today. He is independent at his baseline, and he resides in [place] with his spouse, Elin. P: Patient is to be discharged home today with no needs. Sunita Bridges RN/[employer]
== END 2021-01-04 09:36 | disposition home or self-care (01) ==
LOC: OR 10:57 → AC 13:49
PROVIDERS: Admitting Provider Surgery; PCP Internal Medicine; Referring Provider Surgery; Visit Provider Surgery
PROC: (CPT 49505; principal; 2021-01-03 09:15)
DX: K40.90 Unilateral inguinal hernia, without obstruction or gangrene, not specified as recurrent (principal); I10 Essential (primary) hypertension; F17.210 Nicotine dependence, cigarettes, uncomplicated; Z86.73 Personal history of transient ischemic attack (TIA), and cerebral infarction without residual deficits; R53.1 Weakness
CPT/HCPCS: 49505; 70450; 97116; 97162; C1781; G0378; G0379; J0690; J1100; J2250; J2405; J2704; J3010

== ENCOUNTER → 2021-02-15 09:34 | Outpatient (CLI) | payer MEDICARE, OTHER, SELFPAY ==
[2021-01-03 14:50] VITALS: BMI 30.1
[2021-02-15 11:18] LABS: Cholesterol 211 mg/dL (140-199); HDL Cholesterol 58 mg/dL (40-60); LDL Cholesterol Calculated 138 mg/dL (<100); Triglycerides 77 mg/dL (35-150)
== END ==
PROVIDERS: PCP Internal Medicine; Referring Provider Internal Medicine; Visit Provider Internal Medicine
DX: E78.2 Mixed hyperlipidemia (principal)
CPT/HCPCS: 36415; 80061

== ENCOUNTER → 2022-10-31 12:25 | Outpatient (CLI) | payer MEDICARE, OTHER, SELFPAY ==
[2021-01-03 14:50] VITALS: BMI 30.1
[2022-10-31 13:19] LABS: Hematocrit 42.8 % (41-53); Hemoglobin 14.1 g/dL (13.5-17.5); Mean Corpuscular Hemoglobin 30.4 PG (26-34); Platelet Count 320 X10^3/uL (150-400); Red Blood Cell Count 4.65 X10^6/uL (4.5-5.9); White Blood Cell Count 4.7 X10^3/uL (4.5-11.0)
[2022-10-31 13:41] LABS: Alanine Aminotransferase 37 IU/L (<50); Albumin Globulin Ratio 1.3 (1.0-2.8); Alkaline Phosphatase 53 U/L (38-126); Aspartate Aminotransferase 26 IU/L (17-59); BUN Creatinine Ratio 16.1 (6-22); Bilirubin Total 0.6 mg/dL (0.2-1.3); Blood Urea Nitrogen 14 mg/dL (9-20); Calcium 9.1 mg/dL (8.4-10.2); Carbon Dioxide 28 mmol/L (22-32); Chloride 99 mmol/L (98-107); Cholesterol 139 mg/dL (140-199); Estimated Glomerular Filt Rate > 60 mL/min (>60); Glucose 97 mg/dL (80-110); HDL Cholesterol 51 mg/dL (40-60); HEMOLYSIS < 15 (0-50); LDL Cholesterol Calculated 71 mg/dL (<100); Potassium 4.9 mmol/L (3.4-5.1); Sodium 136 mmol/L (137-145); Triglycerides 85 mg/dL (35-150)
[2022-10-31 14:09] LABS: TSH w/ Reflex to FT4 2.09 uIU/mL (0.47-4.68)
[2022-10-31 14:10] LABS: Prostate Specific Antigen 1.66 ng/mL (0.10-4.00)
== END ==
PROVIDERS: PCP Internal Medicine; Referring Provider Internal Medicine; Visit Provider Internal Medicine
DX: E78.2 Mixed hyperlipidemia (principal); N40.0 Benign prostatic hyperplasia without lower urinary tract symptoms; I10 Essential (primary) hypertension; I67.9 Cerebrovascular disease, unspecified
CPT/HCPCS: 36415; 80053; 80061; 84153; 84443; 85027

== ENCOUNTER → 2023-12-05 16:25 | Outpatient (CLI) | payer MEDICARE, OTHER, SELFPAY ==
[2021-01-03 14:50] VITALS: BMI 30.1
[2023-12-05 17:44] LABS: Aspartate Aminotransferase 23 IU/L (17-59); BUN Creatinine Ratio 15.2 (6-22); Blood Urea Nitrogen 16 mg/dL (9-20); Calcium 9.6 mg/dL (8.4-10.2); Carbon Dioxide 30 mmol/L (22-32); Chloride 106 mmol/L (98-107); Cholesterol 169 mg/dL (140-199); Estimated Glomerular Filt Rate > 60 mL/min (>60); Glucose 96 mg/dL (80-110); HDL Cholesterol 60 mg/dL (40-60); HEMOLYSIS < 15 (0-50); LDL Cholesterol Calculated 80 mg/dL (<100); Potassium 5.1 mmol/L (3.4-5.1); Sodium 137 mmol/L (137-145); Triglycerides 146 mg/dL (35-150)
[2023-12-05 18:17] LABS: Prostate Specific Antigen 1.81 ng/mL (0.10-4.00)
== END ==
PROVIDERS: PCP Internal Medicine; Referring Provider Internal Medicine; Visit Provider Internal Medicine
DX: E78.2 Mixed hyperlipidemia (principal); N40.1 Benign prostatic hyperplasia with lower urinary tract symptoms; I10 Essential (primary) hypertension; N13.8 Other obstructive and reflux uropathy
CPT/HCPCS: 36415; 80048; 80061; 84153; 84450

== ENCOUNTER → 2024-01-23 12:37 | Outpatient (CLI) | payer MEDICARE, OTHER, SELFPAY ==
[2021-01-03 14:50] VITALS: BMI 30.1
--- NOTE | 2024-01-23 13:00 | DI.CT.S_ITS ---
PROCEDURE: CT LUNG LOW DOSE SCREENING INDICATIONS: quit smoking 2019 TECHNIQUE: Noncontrast 2.0-2.5 mm thick sections acquired from the pulmonary apices to the posterior costophrenic angles. 7 mm thick axial MIP, and 5 mm coronal and sagittal reformats were then acquired. For radiation dose reduction, the following was used: automated exposure control, adjustment of mA and/or kV according to patient size. COMPARISON: None. FINDINGS: Image quality: Diagnostic. Lower Neck: No enlarged lymph nodes. Thyroid: No thyroid nodules which require sonographic follow up, per consensus guidelines. Axillae: No enlarged lymph nodes. Chest Wall: Unremarkable. Bones: Unremarkable. Lungs and Pleura: No pneumothorax or pleural effusions. 2 millimeter solid nodule in the left upper lobe Heart: Heart size is normal. No pericardial effusion. Moderate to severe coronary artery calcifications for age. Thoracic Vessels: The aorta and pulmonary arteries demonstrate normal size. Mediastinum and Malia: No enlarged lymph nodes. Esophagus: No wall thickening. Small hiatal hernia. Upper Abdomen: Visualized upper abdomen solid organs and bowel loops appear normal. IMPRESSION: No suspicious pulmonary nodules. LUNG-RADS 2; continued annual screening, if eligible. Clinically Significant Non-pulmonary Findings: Moderate to severe coronary artery calcifications for age. Dictated by: Mart Wei M.D. on 01/23/2024 at 15:36 Approved by: Mart Wei M.D. on 01/23/2024 at 15:38
== END ==
PROVIDERS: PCP Internal Medicine; Referring Provider Internal Medicine; Visit Provider Internal Medicine
DX: Z12.2 Encounter for screening for malignant neoplasm of respiratory organs (principal); R91.1 Solitary pulmonary nodule; I25.10 Atherosclerotic heart disease of native coronary artery without angina pectoris; K44.9 Diaphragmatic hernia without obstruction or gangrene; Z87.891 Personal history of nicotine dependence
CPT/HCPCS: 71271

== ENCOUNTER 2024-06-11 07:56 | Day surgery (SDC) | payer MEDICARE, OTHER, SELFPAY ==
[2021-01-03 14:50] VITALS: BMI 30.1
--- NOTE | 2024-06-11 | PATH_ITS ---
[facility] Accession Number: [id number] No. of containers..02 Tissue . 01 Material submitted: . PART A: colon - ASCENDING POLYP PART B: colon - TRANSVERSE POLYP . 01 Diagnosis: Part A: ASCENDING POLYP: Tubular adenoma. . Part B: TRANSVERSE POLYP: Tubular adenoma. RUST 06/16/2024 1223 Local . 01 Electronically signed: . Lorenzo Puente MD, Pathologist NPI- [id number] . 01 Gross description: . A. Received in formalin with two patient identifiers and ascending colon polyp, is a single perez soft tissue fragment, 0.6 cm in greatest dimension, submitted in A1. . B. Received in formalin with two patient identifiers and transverse colon polyp, is a single perez soft tissue fragment, 0.3 cm in greatest dimension, submitted in B1. ([id number]) /MRV 06/16/2024 1223 Local . 01 Pathologist provided ICD-10: D12.2, D12.3 . 01 CPT . 251769, 895295 Specimen Comment: A courtesy copy of this report has been sent to [phone] Performed at: [address] [address], [place], [place] [id number] MD Lorenzo Puente MD Phone: [phone]
[2024-06-11] MEDS: LACTATED RINGERS 1,000 ML 42 ML IV (08:20)
[2024-06-11 08:21] VITALS: BP 149/84; PULSE 80; RESP 18; TEMP 36.1; O2SAT 96
--- NOTE | 2024-06-11 08:52 | PM.HP.1 ---
History of Present Illness History of Present Illness Date Patient Seen: 06/11/24 Time Patient Seen: 08:52 Chief complaint: Colonoscopy Narrative: Norberto is a 74-year-old here for colonoscopy. He has had polyps in the past. No family history of colon cancer. [facility], [facility] Medical History (Updated 06/19/23 @ 12:07 by Delano Hays MD) Alcohol use disorder Overweight History of colonic polyps Right hemiparesis Mixed hyperlipidemia Essential hypertension Cerebrovascular disease Urinary urgency Urinary frequency Wears glasses Normal echocardiogram Inguinal hernia Tobacco abuse disorder Hyperlipidemia Hypertension Surgical History Hx of hernia repair H/O cataract removal with insertion of prosthetic lens Family History Father Heart attack Hypertension Heart disease Mother Dementia Hypertension Heart disease Brother Healthy adult Sister Healthy adult Brother Healthy adult Brother Healthy adult Social History marital status: details: (Elin), grown children, 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 members: spouse lives independently: Yes occupational status: previously employed Smoking Status: Former smoker alcohol intake: current Meds Home Medications and Allergies Home Medications Medication Instructions Recorded Confirmed Type aspirin 81 mg tablet,delayed 81 mg PO DAILY 10/31/22 06/11/24 History release losartan 25 mg tablet 25 mg PO DAILY #90 tabs 12/05/23 06/11/24 Rx rosuvastatin 10 mg tablet 10 mg PO DAILY #90 tabs 12/05/23 06/11/24 Rx ezetimibe 10 mg tablet 10 mg PO DAILY #90 tabs 12/09/23 06/11/24 Rx Allergies Allergy/AdvReac Type Severity Reaction Status Date / Time No Known Drug Allergies Allergy Verified 06/11/24 08:19 Exam Vital Signs (past 8 hours): - 06/11/24 08:21 Temperature 97 F L Pulse Rate 80 Respiratory Rate 18 Blood Pressure 149/84 H Pulse Oximetry 96 Oxygen Delivery Method Room Air Oxygen Delivery Method Room Air Const General: No acute distress Resp Effort & Inspection: normal respiratory effort Assessment & Plan Assessment and plan (1) History of colonic polyps: Status: Acute Plan We reviewed the risks and benefits of colonoscopy and he would like to proceed. Time-Based Coding :: [TOTAL MINUTES] spent with patient and on the chart (including review of chart, obtaining history, exam, reviewing outside data, placing orders, documenting exam and treatment plan, and counseling patient) on [DATE].
[2024-06-11 09:20] VITALS: BP 108/68; PULSE 73; RESP 12; TEMP 37; O2SAT 94
--- NOTE | 2024-06-11 09:21 | PM.OP.COLON ---
Operative Date/Time/Diagnoses Date of procedure: 06/11/24 Time of procedure: 09:21 Pre-op diagnosis: History of polyps Post-op diagnosis: same Procedure & Clinicians Study performed: Colonoscopy Same procedure as scheduled: Yes Surgeon: Kvng Butler Procedure Notes Procedure in detail: Surgeon: Kvng Butler MD Anesthesia: Puja Partida CRNA Procedure: The patient was brought to the endoscopy suite, placed in left lateral decubitus position. The patient was connected to monitoring devices. A time-out was performed. Sedation was administered. Once the patient was adequately sedated, a digital rectal exam was performed and was normal. The scope was then inserted and advanced to the cecum where the appendiceal orifice was identified and photographed. The scope was then slowly withdrawn over greater than 6 minutes. The mucosa was thoroughly inspected. There was a 5 mm polyp in the ascending colon removed with a cold snare. There was a 5 mm polyp in the transverse colon removed with a cold snare. The scope was retroflexed in the rectum. No other abnormalities were identified. The scope was straightened and removed. The patient was awakened and brought to recovery. Scope withdrawal time: 12 minutes Sedation time: 19 minutes EBL: 5 mL Findings: 5 mm polyp in the transverse colon and 5 mm polyp in the ascending colon Post-procedure Disposition: PACU
[2024-06-11 09:25] VITALS: BP 110/70; PULSE 68; RESP 15; TEMP 36.9; O2SAT 95
[2024-06-11 09:30] VITALS: BP 114/72; PULSE 66; RESP 12; TEMP 36.9; O2SAT 95
[2024-06-11 09:37] VITALS: BP 115/70; PULSE 80; RESP 15; O2SAT 97
== END 2024-06-11 09:45 | disposition home or self-care (01) ==
PROVIDERS: PCP Internal Medicine; Referring Provider Surgery; Visit Provider Surgery
PROC: 0DJD8ZZ Inspection of Lower Intestinal Tract, Via Natural or Artificial Opening Endoscopic (ICD-10-PCS; CPT 45378; principal; 2024-06-11 08:45)
DX: Z12.11 Encounter for screening for malignant neoplasm of colon (principal); Z86.010 Personal history of colon polyps; D12.2 Benign neoplasm of ascending colon; D12.3 Benign neoplasm of transverse colon
CPT/HCPCS: 45385; J2704

== ENCOUNTER → 2025-03-04 16:15 | Outpatient (CLI) | payer MEDICARE, OTHER, SELFPAY ==
[2021-01-03 14:50] VITALS: BMI 30.1
[2025-03-04 17:39] LABS: Aspartate Aminotransferase 28 IU/L (17-59); Blood Urea Nitrogen 20 mg/dL (9-20); Calcium 9.3 mg/dL (8.4-10.2); Carbon Dioxide 29 mmol/L (22-32); Chloride 98 mmol/L (98-107); Cholesterol 147 mg/dL (140-199); Estimated Glomerular Filt Rate > 60 mL/min (>60); Glucose 101 mg/dL (70-99); HDL Cholesterol 42 mg/dL (40-60); LDL Cholesterol Calculated 83 mg/dL (<100); Sodium 132 mmol/L (137-145); Triglycerides 110 mg/dL (35-150)
[2025-03-04 17:40] LABS: HEMOLYSIS 77 (0-50)
[2025-03-04 18:09] LABS: Prostate Specific Antigen 1.81 ng/mL (0.10-4.00)
== END ==
PROVIDERS: PCP Internal Medicine; Referring Provider Internal Medicine; Visit Provider Internal Medicine
DX: I67.9 Cerebrovascular disease, unspecified (principal); E78.2 Mixed hyperlipidemia; N40.1 Benign prostatic hyperplasia with lower urinary tract symptoms; N13.8 Other obstructive and reflux uropathy
CPT/HCPCS: 36415; 80048; 80061; 84153; 84450

== ENCOUNTER → 2025-03-09 12:42 | Outpatient (CLI) | payer MEDICARE, OTHER, SELFPAY ==
[2021-01-03 14:50] VITALS: BMI 30.1
--- NOTE | 2025-03-09 12:44 | DI.CT.S_ITS ---
PROCEDURE: CT LUNG LOW DOSE SCREENING INDICATIONS: history of tobacco TECHNIQUE: Noncontrast 2.0-2.5 mm thick sections acquired from the pulmonary apices to the posterior costophrenic angles. 7 mm thick axial MIP, and 5 mm coronal and sagittal reformats were then acquired. For radiation dose reduction, the following was used: automated exposure control, adjustment of mA and/or kV according to patient size. COMPARISON: [facility], CT, CT LUNG LOW DOSE SCREENING, 01/23/2024, 12:52. FINDINGS: Image quality: Diagnostic. Lower Neck: No enlarged lymph nodes. Thyroid: No thyroid nodules which require sonographic follow up, per consensus guideline. Axillae: No enlarged lymph nodes. Chest Wall: Unremarkable. Bones: No aggressive appearing bony lesions. Lungs and Pleura: No pneumothorax or pleural effusions. Mild left basilar dependent atelectasis. No consolidation or suspicious nodules. Previously described 2 mm left apical nodule is unchanged series 3 image 48. Heart: Heart size is normal. No pericardial effusion. Thoracic Vessels: The aorta and pulmonary arteries demonstrate normal size. 3 vessel coronary artery atherosclerotic calcifications. Mediastinum and [place]: No enlarged lymph nodes. Esophagus: No wall thickening. Small hiatal hernia. Upper Abdomen: Visualized upper abdomen solid organs and bowel loops appear normal. IMPRESSION: 1. No suspicious pulmonary nodules. Stable 2 mm left apical nodule consistent with benign process. LUNG-RADS 2; continued annual screening, if eligible. Clinically Significant Non-pulmonary Findings: Moderate to severe coronary artery atherosclerotic calcifications. Dictated by: Anish Douglas M.D. on 03/09/2025 at 21:02 Approved by: Anish Douglas M.D. on 03/09/2025 at 21:05
== END ==
LOC: CT 12:43
PROVIDERS: PCP Internal Medicine; Referring Provider Internal Medicine; Visit Provider Internal Medicine
DX: Z12.2 Encounter for screening for malignant neoplasm of respiratory organs (principal); Z87.891 Personal history of nicotine dependence; I25.10 Atherosclerotic heart disease of native coronary artery without angina pectoris; K44.9 Diaphragmatic hernia without obstruction or gangrene
CPT/HCPCS: 71271